=== PATIENT | male | born 1970 | race Caucasian/White ===

== ENCOUNTER 2022-11-05 03:13 | Emergency (ER) | payer BC, SELFPAY ==
[2022-11-05] VITALS (13 sets, daily range): BP systolic 136–173; BP diastolic 92–111; PULSE 74–84; RESP 16–18; TEMP 36.1; O2SAT 94–98
--- NOTE | 2022-11-05 03:41 | CRLHL7_ITS ---
For Patients: As a result of the Century Cures Act, medical imaging exams and procedure reports are released immediately into your electronic medical record. You may view this report before your referring provider. If you have questions, please contact your health care provider. INDICATION: Chest pain COMPARISON: A chest radiograph from October 23, 2016 and a contemporaneously chest CT TECHNIQUE: PA and lateral views of the chest were acquired FINDINGS: TUBES AND LINES: None. HEART AND MEDIASTINUM: The heart size is normal. The mediastinal contour appears normal for patient age. LUNGS AND PLEURAL SPACES: The lungs appear normal.The pleural spaces are unremarkable.The lung apices are excluded from the chest x-ray in the PA view. However, they are seen on the contemporaneously chest CT and appeared normal. OSSEOUS STRUCTURES: Age-appropriate appearance. No acute focal finding. IMPRESSION: No evidence of active pulmonary disease. Dictated by Kian Poe MD @ 11/05/2022 5:00:44 AM (Electronically Signed)
[2022-11-05 03:44] LABS: Troponin, Point-of-Care* 0.01 ng/ml (0.01-0.04)
[2022-11-05 03:47] LABS: Basophils Absolute Auto 0.02 K/uL (0.00-0.30); Basophils Percent Auto 0.2 % (0.0-3.0); Eosinophils Percent Auto 2.4 % (0.0-7.0); Hematocrit 45.9 % (37.0-53.0); Hemoglobin* 16.1 gm/dL (13.5-17.5); Immature Granulocytes Abs Auto 0.01 K/uL (0.00-0.30); Immature Granulocytes Pct Auto 0.1 %; Lymphocytes Absolute Auto 2.55 K/uL (0.90-2.90); Lymphocytes Percent Auto 30.2 % (20-44); Mean Corpuscular HGB Conc 35 gm/dL (32-36); Mean Corpuscular Hemoglobin 31 pg (26-34); Mean Corpuscular Volume 90 fL (80-100); Monocytes Percent Auto 7.5 % (0.0-11.0); Neutrophils Absolute Auto 5.02 K/uL (1.7-7.0); Neutrophils Percent Auto 59.6 % (42.0-72.0); Platelet Count* 195 K/uL (140-440); RDW Coefficient of Variation % 12.4 % (11.5-15.5); Red Blood Count 5.12 m/uL (4.30-5.90); White Blood Count* 8.43 K/uL (4.50-11.00)
--- NOTE | 2022-11-05 03:48 | ED.GENADULT ---
HPI - General Adult General Chief complaint: Chest Pain Stated complaint: chest pain Time Seen by Provider: 11/05/22 03:14 Source: patient and family Mode of arrival: ambulatory History of Present Illness HPI narrative: 49-year-old male presents to the ED with his with chest pain for 3 hours prior to arrival. Pain is located in the lower substernal region, superior to the epigastric region in the anterior chest, radiates up into the mid anterior chest that is accompanied by tenderness when taking deep breath but no dyspnea. No nausea, no vomiting, no fever. Worse with laying flat and on his side. Tried taking Tums with no improvement. Achy and constant, worse with deep breath and certain positions. Nonexertional. No prior history of cardiac disease in himself. Remote family history in a grandfather in his 50s. No history of DVT or PE. He is a nonsmoker. Denies significant alcohol intake. On specific questioning, he does report recent URI symptoms and sore throat. Has tried Flonase nasal spray with no significant improvement in those symptoms. No fever, no pertinent travel. Past medical history benign per his report. reports that he has had vasovagal syncope before. Surgical history notable that he has donated a kidney. Nonsmoker, no significant alcohol intake. No home medications, no allergies. ROS is notable for the generalized, HEENT, cardiac symptoms as above, otherwise denies times 12 systems. Related Data Home Medications Medication Instructions Recorded Confirmed fluticasone propionate 50 1 spray intranasal DAILY PRN 11/05/22 11/05/22 mcg/actuation nasal spray,suspension (24 Hour Allergy Relief) Allergies Allergy/AdvReac Type Severity Reaction Status Date / Time NSAIDS (Non-Steroidal Allergy Unknown Verified 11/05/22 04:49 Anti-Inflamma [facility] Medical History Conjunctivitis of right eye ?H10.9 - Unspecified conjunctivitis (ICD-10) Cough ?R05.9 - Cough, unspecified (ICD-10) History of Mohs micrographic surgery for skin cancer ?Z85.828 - Personal history of other malignant neoplasm of skin (ICD-10) ?Z98.890 - Other specified postprocedural states (ICD-10) Periorbital cellulitis of right eye ?L03.213 - Periorbital cellulitis (ICD-10) Surgical History History of kidney donation ?Z90.5 - Acquired absence of kidney (ICD-10) History of vasectomy ?Z98.52 - Vasectomy status (ICD-10) Family History Maternal Grandmother Breast cancer Family/Other Coronary artery disease Social History Narrative: Has 2 children Non-smoker Smoking Status: Never smoker Do you use any of these nicotine containing products: None Second hand tobacco smoke exposure: No How often do you have a drink containing alcohol: 2-3 times a week How many standard drinks containing alcohol do you have on a typical day: 1 or 2 How often do you have six or more drinks on one occasion: Never AUDIT-C Alcohol total score: 3 Non-prescribed substance use: denies use Exam Const: Vital Signs, click to edit/add: Vital Signs - 24 hr 11/05/22 03:20 11/05/22 03:40 11/05/22 03:32 Temperature 97.0 F L Pulse Rate 75 Pulse Rate [Right Pulse Oximeter] 84 82 Respiratory Rate 16 18 Blood Pressure 153/104 H Blood Pressure [Le ft Upper Arm] 173/111 H 153/104 H Pulse Oximetry 98 98 95 Oxygen Delivery Me thod Room Air Room Air 11/05/22 03:33 11/05/22 03:46 11/05/22 04:00 Temperature Pulse Rate 76 77 75 Pulse Rate [Right Pulse Oximeter] Respiratory Rate Blood Pressure 143/103 H Blood Pressure [Le ft Upper Arm] Pulse Oximetry 95 94 94 Oxygen Delivery Me thod 11/05/22 04:01 11/05/22 04:02 11/05/22 04:30 Temperature Pulse Rate 74 77 77 Pulse Rate [Right Pulse Oximeter] Respiratory Rate Blood Pressure 136/92 H Blood Pressure [Le ft Upper Arm] Pulse Oximetry 94 96 97 Oxygen Delivery Me thod 11/05/22 04:31 11/05/22 04:32 11/05/22 05:00 Temperature Pulse Rate 77 74 77 Pulse Rate [Right Pulse Oximeter] Respiratory Rate Blood Pressure 142/98 H Blood Pressure [Le ft Upper Arm] Pulse Oximetry 96 95 94 Oxygen Delivery Me thod 11/05/22 05:01 Temperature Pulse Rate 77 Pulse Rate [Right Pulse Oximeter] Respiratory Rate Blood Pressure 143/92 H Blood Pressure [Le ft Upper Arm] Pulse Oximetry 95 Oxygen Delivery Me thod Documenting provider has reviewed patient's vital signs: yes Common normals: no apparent distress General appearance: cooperative, comfortable and well kempt Other: Good historian, appears well-nourished well-hydrated HENMT: Common normals: normocephalic Head and scalp: normocephalic Face and sinus: normal facial exam Other: Few small aphthous ulcers along the lining of the pharyngeal arches, tonsils are normal, uvula normal, tongue normal. Eye: Common normals: conjunctivae normal General eye: normal appearance of both eyes Conjunctiva: conjunctiva(e) normal Neck & C-Spine: Common normals: full ROM and no lymphadenopathy Chest: Common normals: inspection of chest normal and palpation of chest normal (Some tenderness with palpation of the sternum) Resp: Common normals: normal respiratory effort, no use of accessory muscles and clear to auscultation bilaterally Effort & inspection: able to speak in complete sentences Auscultation: clear to auscultation bilaterally Cardio: Common normals: regular rate, regular rhythm, S1 normal heart sound, S2 normal heart sound and no murmurs Rate: regular rate Rhythm: regular rhythm Heart sounds: S1 normal and S2 normal GI: Common normals: Normal to inspection, nondistended, normoactive bowel sounds present, soft to palpation, non-tender and no hepatosplenomegaly Palpation: soft and no hepatosplenomegaly Extremity: Common normals: normal to inspection and no pedal edema Neuro: Common normals: moves all extremities and no focal motor deficits Speech: speech normal Psych: Appearance: well kempt Activity/motor behavior: appropriate eye contact Mood and affect: euthymic mood Insight: insight good Judgement: judgment good Skin: Common normals: no rashes or lesions noted General skin exam: no rashes or lesions noted Course Vital Signs Vital signs: Initial Vital Signs Temperature 97.0 F L 11/05/22 03:20 Temperature Source Temporal Artery Scan 11/05/22 03:20 Pulse Rate 84 11/05/22 03:20 Pulse Rhythm Regular 11/05/22 03:20 Respiratory Rate 16 11/05/22 03:20 Blood Pressure 173/111 H 11/05/22 03:20 Blood Pressure Mean 131 H 11/05/22 03:20 Blood Pressure Position Semi-Fowlers 11/05/22 03:20 Pulse Oximetry 98 11/05/22 03:20 Oxygen Delivery Method Room Air 11/05/22 03:20 Vital Signs Temperature 97.0 F L 11/05/22 03:20 Pulse Rate 84 11/05/22 03:20 Respiratory Rate 16 11/05/22 03:20 Blood Pressure 173/111 H 11/05/22 03:20 Pulse Oximetry 98 11/05/22 03:20 Oxygen Delivery Method Room Air 11/05/22 03:20 Temperature 97.0 F L 11/05/22 03:20 Pulse Rate 77 11/05/22 05:01 Respiratory Rate 18 11/05/22 03:40 Blood Pressure 143/92 H 11/05/22 05:01 Pulse Oximetry 95 11/05/22 05:01 Oxygen Delivery Method Room Air 11/05/22 03:40 Medical Decision Making MDM Narrative Medical decision making narrative: Suspect pleuritic chest pain from recent URI, have seen several similar cases recently. Cannot exclude PE, coronary artery disease, lung pathology, arrhythmia. Patient placed on a groundwater monitoring technician, EKG, troponin, D-dimer and chest x-ray. If these are normal, will try NSAIDs. No response from Tums at home, low suspicion for GI etiology but cannot rule out. Await findings. Update: D-dimer was mildly positive, elected to do CT scan of the chest. This is negative as well. Labs are reassuring. Second troponin is also negative. Patient has had no worsening of symptoms. Discussed findings, suspect viral pleurisy. Typical course of illness discussed, alarm symptoms reviewed as indications to come to ED. Patient verbalizes understanding and agreement has no further questions. Discussed Tylenol as primary pain modality, NSAIDs as needed. Use NSAIDs sparingly due to his history of single kidney. Lab Data Lab results reviewed: Yes I reviewed the patient's lab results Lab results narrative: Reassuring Labs: Lab Results 11/05/22 11/05/22 11/05/22 Range/Units 03:23 03:41 04:53 WBC 8.43 (4.50-11.00) K/uL RBC 5.12 (4.30-5.90) m/uL Hgb 16.1 (13.5-17.5) gm/dL Hct 45.9 (37.0-53.0) % MCV 90 (80-100) fL MCH 31 (26-34) pg MCHC 35 (32-36) gm/dL RDW Coeff of Kraissa 12.4 (11.5-15.5) % Plt Count 195 (140-440) K/uL Neut % (Auto) 59.6 (42.0-72.0) % Lymph % (Auto) 30.2 (20-44) % Frio % (Auto) 7.5 (0.0-11.0) % Eos % (Auto) 2.4 (0.0-7.0) % Baso % (Auto) 0.2 (0.0-3.0) % Neut # (Auto) 5.02 (1.7-7.0) K/uL Lymph # (Auto) 2.55 (0.90-2.90) K/uL Frio # (Auto) 0.60 (0.00-0.90) K/UL Eos # (Auto) 0.20 (0.00-0.50) K/uL Baso # (Auto) 0.02 (0.00-0.30) K/uL D-Dimer Quant (PE/DVT) 0.64 H (0.00-0.50) ug/ml Sodium 138 (135-149) mmol/L Potassium 3.9 (3.6-5.1) mmol/L Chloride 104 (96-114) mmol/L Carbon Dioxide 29 (20-32) mmol/L BUN 20 (7-30) mg/dL Creatinine 1.2 (0.5-1.5) mg/dL Estimated GFR 73 ml/min Glucose 106 (60-115) mg/dL Calcium 9.6 (8.4-10.6) mg/dL Troponin I < 0.01 L (0.01-0.04) ng/mL C-Reactive Protein 0.6 (0.5-1.0) mg/dL POC Troponin I 0.01 0.00 L (0.01-0.04) ng/ml Imaging Data CT scan - chest: Attestation: I have reviewed the pertinent imaging results. My impression: Normal Radiologist's impression: IMPRESSION: 1. There is no finding of pulmonary embolus. 2. Aside from trace basilar atelectasis, the lungs appear normal. No pleural effusion or pneumothorax. 3. Hepatic steatosis. ECG Data Attestation: I personally reviewed and interpreted this ECG as follows: Prior ECG tracings: not available for review Interpretation: Normal sinus rhythm, rate of 81. Normal axis. Good R-wave progression. No ST or T-wave abnormalities. Normal EKG Discharge Plan Discharge Clinical Impression: Pleurisy Patient Disposition: Home w/ Parent or Adult Condition: Improved Instructions: Pleurisy (DC) Additional Instructions: As we discussed, all of the tests on your heart, lungs, blood are all reassuring. I suspect that your symptoms are from a viral inflammatory process called pleurisy. This is common with the coxsackievirus which we are seeing as we typically do this time of year. As we discussed, use Tylenol for pain control. If you can reproduce the pain with deep breath or palpation, it is unlikely to be dangerous. If you start having worsening exertional chest pain, significant shortness of breath, dizziness or high fever, you should be re-evaluated. You may try to use a couple of Aleve 1-2 times daily. Try not to use this for more than 3 days due to risk of kidney injury. Activity Level: Activity as Tolerated Discharge Diet: Regular Prescriptions: No Action fluticasone propionate [24 Hour Allergy Relief] 50 mcg/actuation spray,suspension 1 spray intranasal DAILY PRN Rx Instructions: administer into each nostril Follow Up/Referrals: Albaro Marmolejo MD [Referring] - Stand Alone Forms: [facility] Info Instructions
[2022-11-05 03:50] LABS: Slide Review Reflex No
[2022-11-05 04:00] LABS: Chloride* 104 mmol/L (96-114); Sodium* 138 mmol/L (135-149)
[2022-11-05 04:01] LABS: Potassium* 3.9 mmol/L (3.6-5.1)
[2022-11-05 04:03] LABS: Creatinine* 1.2 mg/dL (0.5-1.5); Estimated Glomerular Filt Rate 73 ml/min
[2022-11-05 04:04] LABS: Blood Urea Nitrogen* 20 mg/dL (7-30); Calcium* 9.6 mg/dL (8.4-10.6); Carbon Dioxide* 29 mmol/L (20-32); Glucose* 106 mg/dL (60-115)
[2022-11-05 04:06] LABS: D Dimer Quantitative* 0.64 ug/ml (0.00-0.50)
[2022-11-05 04:07] LABS: C Reactive Protein* 0.6 mg/dL (0.5-1.0)
[2022-11-05 04:16] LABS: Troponin I* < 0.01 ng/mL (0.01-0.04)
--- NOTE | 2022-11-05 04:29 | CRLHL7_ITS ---
For Patients: As a result of the Century Cures Act, medical imaging exams and procedure reports are released immediately into your electronic medical record. You may view this report before your referring provider. If you have questions, please contact your health care provider. INDICATION: Elevated D-dimer with chest pain. COMPARISON: No prior transaxial studies. TECHNIQUE: : CT examination of the chest was performed with the uneventful intravenous administration of 95 cc of Isovue 370 while thin axial sections were obtained from above the apices of the lungs to the lung bases. Please note that all CT scans at this facility use dose modulation, iterative reconstruction, and/or weight-based dosing when appropriate to reduce radiation dose to as low as reasonably achievable. FINDINGS: : HEART and MEDIASTINUM: The heart size is normal. There is no mediastinal or hilar adenopathy or mass. There is no pericardial effusion.Small hiatal hernia PULMONARY ARTERIAL CIRCULATION: There is no visible intraluminal filling defect to suggest pulmonary embolus. LUNGS: The lungs show no focal consolidation or mass. The airways appear normal. Trace basilar atelectasis PLEURAL SPACES: There is no pleural effusion, pneumothorax or pleural based mass. VISUALIZED UPPER ABDOMEN: Hepatic steatosis. Otherwise, the limited visualized upper abdominal structures appear normal. OSSEOUS STRUCTURES: Age-appropriate appearance. No acute fracture or destructive process. TUBES and LINES: None. IMPRESSION: 1. There is no finding of pulmonary embolus. 2. Aside from trace basilar atelectasis, the lungs appear normal. No pleural effusion or pneumothorax. 3. Hepatic steatosis. Please note that all CT scans at this facility use dose modulation, iterative reconstruction, and/or weight-based dosing when appropriate to reduce radiation dose to as low as reasonably achievable. Dictated by Kian Poe MD @ 11/05/2022 4:59:47 AM (Electronically Signed)
== END 2022-11-05 05:25 | disposition home or self-care (01) ==
PROVIDERS: Emergency Provider Family Medicine; PCP Family Medicine
DX: R09.1 Pleurisy (principal)
CPT/HCPCS: 36415; 71046; 71260; 80048; 84484; 85025; 85379; 86140; 93005; 99283; 99284; 99285; Q9967

== ENCOUNTER 2023-02-12 11:32 | Outpatient (CLI) | payer BC, SELFPAY | END 2023-02-12 11:33 | disposition home or self-care (01) | PROVIDERS: PCP Family Medicine; Visit Provider Family Medicine | DX: Z00.00 Encounter for general adult medical examination without abnormal findings (principal); R10.13 Epigastric pain; J18.9 Pneumonia, unspecified organism | CPT/HCPCS: 80053; 83690 ==

== ENCOUNTER 2023-06-02 19:26 | Outpatient (CLI) | payer BC, SELFPAY ==
--- NOTE | 2023-06-09 08:52 | W.PM.SLEEP ---
Sleep Study Details Details Interpreting Provider: Anselmo Date of Sleep Study: 06/02/23 Sleep Study Details: STUDY TYPE:? Home unattended ? BMI:? 28.5 ORDERING PROVIDER:Shakira Briones INDICATION:? Concerns about sleep apnea ? SLEEP SUMMARY:? 468 minutes monitored RESPIRATORY SUMMARY:? AHI 13.7, supine 61.9, left lateral 9.2, right lateral 7.5 Low oxygen 88 0.2% of study oxygen less than 90% Snoring 6.2% PERIODIC LIMB MOVEMENTS OF SLEEP:? Not recorded during home study CARDIAC:? Range 46-99 beats per minute, mean 62.8 beats per minute IMPRESSION:? Mild obstructive sleep apnea with significant supine position dependency RECOMMENDATION: Treatment options include CPAP AutoSet 4-17, dental appliance and/or airway expansion surgery. Would favor CPAP given severity of apnea in the supine position.
--- NOTE | 2023-06-16 10:04 | W.PM.SLEEP ---
Sleep Study Details Details Interpreting Provider: Anselmo Date of Sleep Study: 06/02/23 Sleep Study Details: STUDY TYPE:? Home unattended ? BMI:? 28.5 ORDERING PROVIDER:Shakira Briones INDICATION:? Concerns about sleep apnea ? SLEEP SUMMARY:? 468 minutes monitored RESPIRATORY SUMMARY:? AHI 13.7, supine 61.9, left lateral 9.2, right lateral 7.5 Low oxygen 88 0.2% of study oxygen less than 90% Snoring 6.2% PERIODIC LIMB MOVEMENTS OF SLEEP:? Not CARDIAC:? Recorded during home study range 46-99 beats per minute, mean 62.8 beats per minute IMPRESSION:? Mild obstructive sleep apnea with severe apnea in the supine position. RECOMMENDATION: Treatment options include AutoSet CPAP, dental appliance with avoidance of supine sleep, and/or airway expansion surgery.
== END 2023-06-02 19:27 | disposition home or self-care (01) ==
LOC: SLEEP 19:27
PROVIDERS: PCP Family Medicine; Visit Provider Otolaryngology
DX: G47.33 Obstructive sleep apnea (adult) (pediatric) (principal)
CPT/HCPCS: 95806

== ENCOUNTER 2023-07-27 08:51 | Emergency (ER) | payer BC, SELFPAY ==
[2023-07-27 08:57] VITALS: BP 147/98; PULSE 117; RESP 14; TEMP 35.9; O2SAT 97; BMI 29.6
--- NOTE | 2023-07-27 09:07 | ED_ITS ---
HPI - General Adult General Chief complaint: Allergic Reaction Stated complaint: possible broken nose Time Seen by Provider: 07/27/23 09:03 History of Present Illness HPI narrative: Pt here for eval after nose injury last noc. Pt was hit by dog last noc, denies LOC and blood thinners. Reports pain and swelling. Tried to go to walk-up clinic in [place] and rec to present to ED for r/o of facial bones fx . Also reports confusion this AM on waking. 52-year-old man presenting to the emergency department with concern of potentially broken nose. Has a good size dog. While playing with a dog last night dogs head had came up into his nose. He is having some pain and swelling. Concern was expressed in clinic follow-up for potential fracture. Also alarming was this morning when he woke up he felt confused. This has mostly faded. No complaint of neck or back pain. No vomiting. No discoordination. No visual difficulties. Related Data Home Medications Medication Instructions Recorded Confirmed fluticasone propionate 50 1 spray intranasal DAILY PRN 11/05/22 07/27/23 mcg/actuation nasal spray,suspension (24 Hour Allergy Relief) omeprazole 20 mg capsule,delayed 20 mg PO DAILY 07/27/23 07/27/23 release Allergies Allergy/AdvReac Type Severity Reaction Status Date / Time NSAIDS (Non-Steroidal AdvReac Unknown Verified 07/27/23 07:45 Anti-Inflamma Review of Systems Status of ROS: Reports: 6 or more systems reviewed and unremarkable except as noted in History and below [facility] Medical History Head injury ?S09.90XA - Unspecified injury of head, initial encounter (ICD-10) Wheezing ?R06.2 - Wheezing (ICD-10) Community acquired pneumonia ?J18.9 - Pneumonia, unspecified organism (ICD-10) Periorbital cellulitis of right eye ?L03.213 - Periorbital cellulitis (ICD-10) History of Mohs micrographic surgery for skin cancer ?Z85.828 - Personal history of other malignant neoplasm of skin (ICD-10) ?Z98.890 - Other specified postprocedural states (ICD-10) Cough ?R05.9 - Cough, unspecified (ICD-10) Conjunctivitis of right eye ?H10.9 - Unspecified conjunctivitis (ICD-10) Surgical History History of vasectomy ?Z98.52 - Vasectomy status (ICD-10) History of kidney donation ?Z90.5 - Acquired absence of kidney (ICD-10) Family History Maternal Grandmother Breast cancer Family/Other Coronary artery disease Social History Narrative: Has 2 children Non-smoker Smoking Status: Never smoker Do you use any of these nicotine containing products: None Second hand tobacco smoke exposure: No How often do you have a drink containing alcohol: 2-3 times a week How many standard drinks containing alcohol do you have on a typical day: 1 or 2 How often do you have six or more drinks on one occasion: Never AUDIT-C Alcohol total score: 3 Non-prescribed substance use: denies use Exam Narrative: Exam Narrative: Pleasant. Seems a little distracted, uncomfortable. Sounds a little congested the nasopharynx. Evidently does have allergic rhinitis. Skin is warm and dry. Mild swelling and mild erythema over the bridge of his nose. No depression. No septal hematoma on intranasal exam. Slightly narrower in the right naris. Head otherwise atraumatic. Neck is supple nontender. Cranial nerves 2-12 intact. Extraocular movements are full and without nystagmus. Pupils are equal and appropriately reactive. Observed to be ambulating, transitioning without diffic ulty. Const: Vital Signs, click to edit/add: Vital Signs - 24 hr 07/27/23 08:57 Temperature 96.7 F L Pulse Rate [Pulse Oximeter] 117 H Respiratory Rate 14 Blood Pressure [Ri ght Upper Arm] 147/98 H Pulse Oximetry 97 Oxygen Delivery Me thod Room Air Documenting provider has reviewed patient's vital signs: yes Course Vital Signs Vital signs: Initial Vital Signs Temperature 96.7 F L 07/27/23 08:57 Temperature Source Temporal Artery Scan 07/27/23 08:57 Pulse Rate 117 H 07/27/23 08:57 Pulse Rhythm Regular 07/27/23 08:57 Respiratory Rate 14 07/27/23 08:57 Blood Pressure 147/98 H 07/27/23 08:57 Blood Pressure Mean 114 H 07/27/23 08:57 Blood Pressure Position Sitting 07/27/23 08:57 Pulse Oximetry 97 07/27/23 08:57 Oxygen Delivery Method Room Air 07/27/23 08:57 Vital Signs Temperature 96.7 F L 07/27/23 08:57 Pulse Rate 117 H 07/27/23 08:57 Respiratory Rate 14 07/27/23 08:57 Blood Pressure 147/98 H 07/27/23 08:57 Pulse Oximetry 97 07/27/23 08:57 Oxygen Delivery Method Room Air 07/27/23 08:57 Temperature 96.7 F L 07/27/23 10:56 Pulse Rate 91 07/27/23 10:56 Respiratory Rate 14 07/27/23 10:56 Blood Pressure 147/98 H 07/27/23 10:56 Pulse Oximetry 97 07/27/23 08:57 Oxygen Delivery Method Room Air 07/27/23 08:57 Medical Decision Making MDM Narrative Medical decision making narrative: I think it is possible that there is a fracture here. If so it is not depressed. I also do not appreciate other significant cosmetic deformity or impingement on airway. I would anticipate that this will look fairly normal once swelling goes down. I do not think that imaging will change any recommendations. It is possible there is some degree of concussion here. If this information is helpful I did offer imaging of the nasal bones. They decided they would like this done and so this was ordered. He did not feel he needed anything for pain. Review of x-ray of facial bones by me - I can not appreciate a fracture here. However radiology on over-read as below TECHNIQUE: Three views nasal bones. FINDINGS: BONES: Nondepressed and nondisplaced left nasal bone fracture involving the tip of the nasal bone. Normal mineralization. No focal bone lesion. Soft Tissues: Normal. No foreign body. IMPRESSION : Nondepressed nondisplaced left nasal bone fracture. Had anticipated discharging a prior to radiology over-read since I did not note anything major. However just prior to departure over-read returned as above. I printed pictures and discussed findings with Mr. Huffman and spouse. See patient discharge plan Discharge Plan Discharge Clinical Impression: Headache, Nasal contusion, Closed head injury Patient Disposition: Home w/ Parent or Adult Condition: Stable Additional Instructions: Return for severe headache, repeated vomiting, new and focal weakness, visual changes, discoordination, unusual somnolence. Important to get quality and regular sleep and stay well hydrated. You might experience other symptoms like headache and nausea on exertion which would also be an indication to back off that level of activity and reassess in 1 week.? Other symptoms might be a smoldering headache or nausea for an extended period of time, mood lability, sleep disturbances, difficulty with concentration, persistent light sensitivity.? If these symptoms continue beyond a week, I would be re-evaluated for consideration of participation with physical therapy specializing in concussive symptoms or follow-up with a clinic specializing in concussion. I will let you know if Radiology says anything more about your imaging. Might want to ice your face a couple of times today and maybe tomorrow. Acetaminophen as discussed. Prescriptions: No Action fluticasone propionate [24 Hour Allergy Relief] 50 mcg/actuation spray,suspension 1 spray intranasal DAILY PRN Rx Instructions: administer into each nostril omeprazole 20 mg capsule,delayed release(DR/EC) 20 mg PO DAILY Follow Up/Referrals: Chantell Gonzalez MD [Primary Care Provider] - Stand Alone Forms: [facility] Info Instructions
--- NOTE | 2023-07-27 09:26 | CRLHL7_ITS ---
For Patients: As a result of the Cures Act, medical imaging exams and procedure reports are released immediately into your electronic medical record. You may view this report before your referring provider. If you have questions, please contact your health care provider. INDICATION: Blow to nose, pain COMPARISON: None. TECHNIQUE: Three views nasal bones. FINDINGS: BONES: Nondepressed and nondisplaced left nasal bone fracture involving the tip of the nasal bone. Normal mineralization. No focal bone lesion. Soft Tissues: Normal. No foreign body. IMPRESSION : Nondepressed nondisplaced left nasal bone fracture. Dictated by Andie Zuniga MD @ 07/27/2023 10:38:28 AM (Electronically Signed)
[2023-07-27 10:56] VITALS: BP 147/98; PULSE 91; RESP 14; TEMP 35.9
== END 2023-07-27 10:55 | disposition home or self-care (01) ==
PROVIDERS: Emergency Provider Family Medicine; PCP Family Medicine
DX: S00.33XA Contusion of nose, initial encounter (principal); W54.1XXA Struck by dog, initial encounter; R51.9 Headache, unspecified
CPT/HCPCS: 70160; 99283; 99284

== ENCOUNTER 2023-12-07 08:02 | Outpatient (CLI) | payer BC, SELFPAY | END 2023-12-07 08:03 | disposition home or self-care (01) | PROVIDERS: Visit Provider Family Medicine | DX: Z00.00 Encounter for general adult medical examination without abnormal findings (principal); K76.0 Fatty (change of) liver, not elsewhere classified; R79.89 Other specified abnormal findings of blood chemistry; R03.0 Elevated blood-pressure reading, without diagnosis of hypertension; M25.551 Pain in right hip; M25.552 Pain in left hip; Z12.5 Encounter for screening for malignant neoplasm of prostate; Z82.69 Family history of other diseases of the musculoskeletal system and connective tissue | CPT/HCPCS: 80053; 80061; 82043; 82570; 86039; 86140; 86803; G0103 ==

== ENCOUNTER 2025-03-14 13:45 | Outpatient (CLI) | payer BC, SELFPAY | END 2025-03-14 13:46 | disposition home or self-care (01) | LOC: FRMREF 13:47 | PROVIDERS: PCP Family Medicine; Visit Provider Family Medicine | DX: Z01.818 Encounter for other preprocedural examination (principal) | CPT/HCPCS: 80053; 80061 ==

== ENCOUNTER 2025-04-21 22:58 | Emergency (ER) | payer BC, SELFPAY ==
--- OUTSIDE RECORDS SUMMARY | 2025-04-10 13:08 | XMS_ITS | Encounter Summary ---
Author Organization [facility] Address [address] [place] [id number] Care Team Providers Care Jordan Worker Name Role Phone Clinic, [facility] Primary Care Provider Reason for Visit * Reason Comments Dizziness Encounter Details Date Type Department Care Team (Late st Contact Info) Description 04/10/2025 1:08 PM CDT - 04/10/2025 3:56 PM CDT Emergency [facility] Emergency Dept [address] [place] [id number] Arturo Mcduffie MD [facility] [address] [place] [address] [place] [id number] Syncope, unspecified syncope type (Primary Dx); Speech disturbance, unspecified type Discharge Disposition: Home or Self Care Social History Tobacco Use Types Packs/Day Years Used Date Smoking Tobacco: Never Assessed Sex and Gender Information Value Date Recorded Sex Assigned at Not on file Legal Sex Male 2:13 PM CDT Gender Identity Not on file Sexual Orientation Not on file documented as of this encounter Last Filed Vital Signs Vital Sign Reading Time Taken Comments Blood Pressure 156/98 04/10/2025 3:31 PM CDT Pulse 98 04/10/2025 3:31 PM CDT Temperature 36.7 C (98.1 F) 04/10/2025 1:39 PM CDT Respiratory Rate 18 04/10/2025 1:16 PM CDT Oxygen Saturation 96% 04/10/2025 3:31 PM CDT Inhaled Oxygen Concentration - - Weight 101 kg (222 lb 10.6 oz) 04/10/2025 1:16 P M CDT Height - - Body Mass Index - - documented in this encounter Discharge Instructions * Discharge Instructions* Arturo Mcduffie MD - 04/10/2025 3:27 PM CDT Discharge Instructions Syncope Syncope (fainting) is a sudden, short loss of consciousness (passing out spell). People will usually fall to the ground when they faint or slump over if seated. People may also shake when this happens, and it can sometimes be difficult to tell the difference between syncope and a seizure. At this time, your provider does not find a reason to suspect that your fainting spell is a sign of anything dangerous or life-threatening. However, sometimes the signs of serious illness do not show up right away. Generally, every Emergency Department visit should have a follow-up clinic visit with either a primary or a specialty clinic/provider. Please follow-up as instructed by your emergency provider today. Return to the Emergency Department if: You faint again. You have any significant bleeding. You have chest pain or a fast or irregular heartbeat. You feel short of breath. You cough up any blood. You have abdominal (belly) pain or unusual back pain. You have ongoing vomiting (throwing up) or diarrhea (loose stools). You have a black or tarry bowel movement, or blood in the stool or in your vomit. You have a fever over 101??F. You lose feeling or cannot move a part of your body or cannot talk normally. You are confused, have a headache, cannot see well, or have a seizure. DO NOT DRIVE. CALL 911 INSTEAD! What can I do to help myself? Follow any specific instructions that your provider discussed with you. If you feel light-headed, make sure to sit down right away, even if you have to sit on the floor. Follow up with your regular medical provider as discussed for further management. This may include lowering your blood pressure medications, insulin or other diabetic medications, checking your bloodsugar more frequently, and drinking more fluids, taking medicines for vomiting or diarrhea or getting up slower. If you were given a prescription for medicine here today, be sure to read all of the information (including the package insert) that comes with your prescription. This will include important information about the medicine, its side effects, and any warnings that you need to know about. The pharmacist who fills the prescription can provide more information and answer questions you may have about the medicine. If you have questions or concerns that the pharmacist cannot address, please call or return to the Emergency Department. Remember that you can always come back to the Emergency Department if you are not able to see your regular provider in the amount of time listed above, if you get any new symptoms, or if there is anything that worries you. documented in this encounter Consult Notes * Micheline Griffith, GRACIELA CHANGE MANAGEMENT FACILITATOR - 04/10/2025 3:01 PM CDTAssociated Order(s): NEUROLOGY IP STROKE CONSULT [facility] Stroke Telephone Note I was called by Arturo Mcduffie on 04/10/25 regarding patient Kash Huffman. The patient is a 54 year old male with PMH of prior syncope recent ALS surgery who presents for evaluation of syncope. LKW around 1030 and he was in the shower and upon getting out felt dizzy/lightheaded and he sat down andthen lost consciousness. When he awoke he had bilateral blurred vision some slowed/slurred speech, dizziness and nausea. Of note patient has a prior history of syncope reportedly due to vasovagal response. Per ED provider symptoms have not resolved and patient has no deficits on examination. Vitals BP: 122/88 Pulse: 90 Resp: 18 Temp: 98.1 ??F (36.7 ??C) Weight: 101 kg (222 lb 10.6 oz) Imaging Findings CT head: no hemorrhage or other acute findings CTA head/neck: No LVO, significant stenosis or dissection; in particular no basilar or posterior circulation pathology Impression Syncopal event followed by bilateral blurred vision, slowed/slurred speech, dizziness and nausea. Etiology unclear. However, syncopal event is not a common presentation for TIA/stroke and in particular with lack of focal deficits this seems very unlikely. Symptoms are more suggestive of a global hypoperfusion such as can be related to hypotension, cardiac cause, vasovagal response versus other Recommendations -Further TIA/stroke workup recommended at this time Case discussed with vascular neurology attending Dr. Tripathi. My recommendations are based on the information provided over the phone by Kash Huffman's in-personproviders. They are not intended to replace the clinical judgment of his in-person providers. I wasnot requested to personally see or examine the patient at this time. Micheline Griffith APRN CNP Vascular Neurology To page me or covering stroke neurology steam clothes press operator, click here: [employer] Choose Wood Tool Maker tab at top, then select NEUROLOGY/ALL SITES from middle drop- down box, press Enter, then look for stroke or telestroke for your site. Billing Statement My total time spent in verbal discussion with requesting provider, reviewing clinical information and formulating assessment was 25 minutes. Cosigned by Madi Ng MD at 04/10/2025 3:31 PM CDT Associated attestation - Madi Ng MD - 04/10/2025 3:31 PM CDT Stroke/Telestroke Attending Attestation I have reviewed and discussed with the advanced practice provider/fellow/resident their history, physical and plan for Kash Huffman. I did not participate in a shared visit by interviewing or examining the patient. Please contact the stroke service with any questions: link to Text page Madi Dadren MD Date of Service (when I saw the patient): I did not personally see this patient today. documented in this encounter ED Notes * Ela Simms RN - 04/10/2025 3:46 PM CDT Patient refusing road test, says he feels fine ambulating at home. made aware * Arturo Mcduffie MD - 04/10/2025 1:28 PM CDT Emergency Department Note History of Present Illness Chief Complaint Dizziness HPI Kash Huffman is a 54 year old male who presents to the ER after syncopal episode. Since his right ACL surgery 5 to 6 days ago, he has had some lingering nausea and lightheadedness. This morning he felt similar but had some tightness about the right knee. After getting of the shower, patient startedto feel more lightheaded and sat on the toilet. His witnessed him to have a syncopal episode lasting a minute or so. No seizure-like activity. Patient denies chest pain but has had some faster heart rates and exertional dyspnea since the surgery. He also thinks he might have some word finding difficulties at present. No numbness or weakness in the extremities. No headache. No vision changes. Independent Historian None Review of External Notes Past Medical History Medical History and Problem List No past medical history on file. Medications No current outpatient medications on file. Surgical History No past surgical history on file. Physical Exam Patient Vitals for the past 24 hrs: BP Temp Temp src Pulse Resp SpO2 Weight 04/10/25 1531 (!) 156/98 -- -- 98 -- 96 % -- 04/10/25 1428 122/88 -- -- 90 -- 95 % -- 04/10/25 1339 -- 98.1 ??F (36.7 ??C) Oral -- -- -- -- 04/10/25 1338 (!) 145/98 -- -- 89 -- 94 % -- 04/10/25 1316 (!) 141/97 -- -- 84 18 100 % 101 kg (222 lb 10.6 oz) Physical Exam VS: Reviewed per above HENT: Mucous membranes moist, no nuchal rigidity EYES: sclera anicteric CV: Rate as noted, regular rhythm. RESP: Effort normal. Breath sounds are normal bilaterally. GI: no tenderness/rebound/guarding, not distended. NEURO: GCS 15, cranial nerves II through XII are intact, 5 out of 5 strength in all 4 extremities, sensation is intact light touch in all 4 extremities. Normal FNF testing BL, heel nava testing limited due to RLE knee immobilizer. MSK: No deformity of the extremities, R anterior knee surgical site c/d/I without surrounding erythema. Scant edema about R knee and RLE. SKIN: Warm and dry Diagnostics Lab Results Labs Ordered and Resulted from Time of ED Arrival to Time of ED Departure BASIC METABOLIC PANEL (LIMITED OCCURRENCES) - Abnormal Result Value Sodium 135 Potassium 4.8 Chloride 99 Carbon Dioxide (CO2) 24 Anion Gap 12 Urea Nitrogen 22.4 (*) Creatinine 1.40 (*) GFR Estimate 59 (*) Calcium 9.7 Glucose 145 (*) D DIMER QUANTITATIVE - Abnormal D-Dimer Quantitative 2.20 (*) TROPONIN T, HIGH SENSITIVITY - Normal Troponin T, High Sensitivity 7 MAGNESIUM (LIMITED OCCURRENCES) - Normal Magnesium 1.9 CBC WITH PLATELETS AND DIFFERENTIAL WBC Count 8.88 RBC Count 5.39 Hemoglobin 16.5 Hematocrit 46.7 MCV 86.6 MCH 30.6 MCHC 35.3 RDW 12.5 Platelet Count 178 % Neutrophils 70.8 % Lymphocytes 15.9 % Monocytes 10.6 % Eosinophils 2.0 % Basophils 0.2 % Immature Granulocytes 0.5 NRBCs per 100 WBC 0.0 Absolute Neutrophils 6.29 Absolute Lymphocytes 1.41 Absolute Monocytes 0.94 Absolute Eosinophils 0.18 Absolute Basophils <0.03 Absolute Immature Granulocytes 0.04 Absolute NRBCs <0.03 TROPONIN T, HIGH SENSITIVITY Imaging CTA Head Neck with Contrast Final Result IMPRESSION: HEAD CTA: 1. No large vessel occlusion, dissection, hemodynamic stenosis or aneurysm. Satisfactory branch arborization pattern and caliber bilateral SAHARA, MCA and DIE CUTTING MACHINE OPERATOR distribution. No pathologic enhancement intracranially. Dural venous sinus enhancement is normal. NECK CTA: 1. No hemodynamic stenosis or dissection of the major neck arteries or at the great vessel origin level. No pathologic enhancement in the neck. CT Chest Pulmonary Embolism w Contrast Final Result IMPRESSION: 1. Negative CT pulmonary angiogram. No evidence of pulmonary embolus. No acute findings in the chest. Head CT w/o contrast Final Result IMPRESSION: 1. No acute intracranial process. EKG ECG results from 04/10/25 EKG 12 lead Value Systolic Blood Pressure Diastolic Blood Pressure Ventricular Rate [address] Interval 150 QRS Duration 88 QT 366 QTc 432 P Cic[place] 61 R AXIS 91 T [place] 58 Interpretation ECG Sinus rhythm Rightward axis Borderline ECG No previous ECGs available Independent Interpretation None ED Course Medications Administered Medications sodium chloride 0.9 % bag for CT scan flush (100 mLs As instructed $Given 04/10/25 7915) sodium chloride 0.9% BOLUS 1,000 mL (0 mLs Intravenous Stopped 9/22/25 1546) midazolam (VERSED) injection 0.5 mg (0.5 mg Intravenous $Given 04/10/25 1334) iohexol (OMNIPAQUE) 350 MG/ML injectable solution 500 mL (71 mLs Intravenous $Given 04/10/25 1409) Procedures Procedures Discussion of Management ED Course as of 04/10/25 1650 Mon Apr 10, 2025 1500 I rechecked pt. Speech subjectively back to baseline. He feels that episode lasted 1 hour. 1504 I spoke with stroke team flavio- low risk for TIA given hx. Sounds like global hypoperfusion in setting of syncope [address] test- he understands it is to confirm he is at his neurologic baseline. Additional Documentation None Medical Decision Making / Diagnosis [facility] Diagnoses: None MIPS None CT for PE was ordered because the patient had an abnormal d-dimer. LOGAN Huffman is a 54 year old male who presents to the ER for evaluation of syncopal episode and 1 hour episode of word finding difficulties versus slurred speech. On arrival vital signs are reassuring. He is neurologically intact on my examination without objective speech deficit. Initial CT head,CTA head and neck are unremarkable. CT PE study was obtained due to elevated D-dimer and question of exertional dyspnea/tachycardia. This study was negative as well. Basic labs are reassuring. No signs of concerning anemia or electrolyte derangement or ACS. After IV fluids and some Versed, he felt much improved. I spoke with stroke team and their suspicion for occult TIA was quite low- no furtherTIA/stroke workup recommended at this time. I agree with this sentiment. Offered hospital admissionfor further telemetry monitoring and echocardiogram in the setting of syncope but patient declined.Patient reports previous evaluations for syncopal episodes. Recommended prompt primary care follow-up and return should symptoms progress or worsen. All questions answered prior to discharge. Disposition The patient was discharged. Diagnosis ICD-10-CM 1. Syncope, unspecified syncope type R55 2. Speech disturbance, unspecified type R47.9 Discharge Medications There are no discharge medications for this patient. Arturo Mcduffie MD 04/10/25 1652 * Cherie Darnell RN - 04/10/2025 1:08 PM CDT Pt arrives to the ED via EMS from home. Pt had ACL surgery on Thu. Pt has h/o spontaneous vagal episodes. Today had shower around 1030, had episode after getting out of shower where he felt dizzy/lightheaded. Was able to get sit down. Usually with his vagal episodes the symptoms resolve within 10-15 min but this time they have lasted longer. Pt states dizziness, nausea, difficulty focusing difficulty communicating, bilateral blurry vision. No headache. Not on thinners. BG 114, 4 mg zofran givenby EMS. * Sylvia Pagan RN - 04/10/2025 1:08 PM CDT Bed: [id number] Expected date: 04/10/25 Expected time: 12:50 PM Means of arrival: Comments: [id number] documented in this encounter Plan of Treatment Not on file documented as of this encounter Procedures Procedure Name Priority Date/Time Associated Diagnosis Comments CTA HEAD NECK W CONTRAST STAT 04/10/2025 2:[address] CHEST PULMONARY EMBOLISM W CONTRAST STAT 04/10/2025 2:[address] HEAD W/O CONTRAST STAT 04/10/2025 2:19 PM CDT EXTRA TUBE STAT 04/10/2025 1:18 PM CDT EXTRA PURPLE TOP TUBE STAT 04/10/2025 1:18 PM CDT EXTRA GREEN TOP (LITHIUM HEPARIN) TUBE STAT 04/10/2025 1:18 PM CDT EXTRA RED TOP TUBE STAT 04/10/2025 1: 18 PM CDT EXTRA BLUE TOP TUBE STAT 04/10/2025 1 :18 PM CDT CBC WITH PLATELETS AND DIFFERENTIAL STAT 04/10/2025 1:18 PM CDT CBC WITH PLATELETS AND DIFFERENTIAL (LIMITED OCCURRENCES) STAT 04/10/2025 1:18 PM CDT BASIC METABOLIC PANEL (LIMITED OCCURRENCES) STAT 04/10/2025 1:18 PM CDT MAGNESIUM (LIMITED OCCURRENCES) STAT 04/10/2025 1:18 PM CDT TROPONIN T, HIGH SENSITIVITY STAT 04/10/2025 1:18 PM CDT D DIMER QUANTITATIVE STAT 04/10/2025 1:18 PM CDT EKG 12-LEAD, TRACING ONLY STAT 04/10/2025 1:15 PM CDT documented in this encounter Results * CTA Head Neck with Contrast (04/10/2025 2:25 PM CDT) Anatomical Region Laterality Modality Head, SUBRAD CT NEURO, SUBRA D CT NEURO, UMP CT NEURO, RAD CT Computed Tomography 04/10/2025 2:25 PM CDT Impressions 04/10/2025 2:41 PM CDT IMPRESSION: HEAD CTA: 1. No large vessel occlusion, dissection, hemodynamic stenosis or aneurysm. Satisfactory branch arborization pattern and caliber bilateral SAHARA, MCA and DIE CUTTING MACHINE OPERATOR distribution. No pathologic enhancement intracranially. Dural venous sinus enhancement is normal. NECK CTA: 1. No hemodynamic stenosis or dissection of the major neck arteries or at the great vessel origin level. No pathologic enhancement in the neck. Narrative 04/10/2025 2:41 PM CDT EXAM: CTA HEAD NECK W CONTRAST LOCATION: [facility] DATE: 04/10/2025 INDICATION: Syncope, recent dizziness. COMPARISON: None. CONTRAST: 71mL Omni 350 TECHNIQUE: Head and neck CT angiogram with IV contrast. Axial helical CT images of the head and neck vessels obtained during the arterial phase of intravenous contrast administration. Axial 2D reconstructed images and multiplanar 3D MIP reconstructed images of the head and neck vessels were performed by the technologist. Dose reduction techniques were used. All stenosis measurements made according to NASCET criteria unless otherwise specified. FINDINGS: HEAD CTA: ANTERIOR CIRCULATION: No stenosis/occlusion, aneurysm, or high flow vascular malformation. Standard [place] anatomy. Satisfactory peripheral branch arborization pattern and caliber bilateral SAHARA and MCA distribution. POSTERIOR CIRCULATION: No stenosis/occlusion, aneurysm, or high flow vascular malformation. Balanced vertebral arteries supply a normal basilar artery. Satisfactory peripheral branch arborization pattern and caliber bilateral DIE CUTTING MACHINE OPERATOR distribution. DURAL VENOUS SINUSES: Expected enhancement of the major dural venous sinuses. NECK CTA: RIGHT CAROTID: No measurable stenosis or dissection. LEFT CAROTID: No measurable stenosis or dissection. VERTEBRAL ARTERIES: No focal stenosis or dissection. Slight congenital dominant caliber left vertebral artery. AORTIC ARCH: Conventional 3 vessel arch anatomy. No evidence for great vessel origin stenosis or dissection. NONVASCULAR STRUCTURES: No pathologic enhancement is noted intracranially or within orbits. No mass or mass effect intracranially. No mass, adenopathy or pathologic enhancement in the neck. Thyroid is satisfactory. Abnormal right paratracheal lymph node presumed reactive. No airway narrowing. Minimal scarring in the upper lungs. Mild degenerative changes in the cervical spine. No severe canal stenosis or severe foraminal narrowing at any cervical level. Procedure Note Artemio Levi MD - 04/10/2025 EXAM: CTA HEAD NECK W CONTRAST LOCATION: [facility] DATE: 04/10/2025 INDICATION: Syncope, recent dizziness. COMPARISON: None. CONTRAST: 71mL Omni 350 TECHNIQUE: Head and neck CT angiogram with IV contrast. Axial helical CTimages of the head and neck vessels obtained during the arterial phase ofintravenous contrast administration. Axial 2D reconstructed images andmultiplanar 3D MIP reconstructed images of the head and neck vessels were performed by the technologist.Dose reduction techniques were used. All stenosis measurements madeaccording to NASCET criteria unless otherwise specified. FINDINGS: HEAD CTA: ANTERIOR CIRCULATION: No stenosis/occlusion, aneurysm, or high flowvascular malformation. Standard [place] anatomy. Satisfactoryperipheral branch arborization pattern and caliber bilateral SAHARA and MCAdistribution. POSTERIOR CIRCULATION: No stenosis/occlusion, aneurysm, or high flowvascular malformation. Balanced vertebral arteries supply a normal basilarartery. Satisfactory peripheral branch arborization pattern and caliberbilateral DIE CUTTING MACHINE OPERATOR distribution. DURAL VENOUS SINUSES: Expected enhancement of the major dural venoussinuses. NECK CTA: RIGHT CAROTID: No measurable stenosis or dissection. LEFT CAROTID: No measurable stenosis or dissection. VERTEBRAL ARTERIES: No focal stenosis or dissection. Slight congenitaldominant caliber left vertebral artery. AORTIC ARCH: Conventional 3 vessel arch anatomy. No evidence for greatvessel origin stenosis or dissection. NONVASCULAR STRUCTURES: No pathologic enhancement is noted intracraniallyor within orbits. No mass or mass effect intracranially. No mass,adenopathy or pathologic enhancement in the neck. Thyroid is satisfactory.Abnormal right paratracheal lymph node presumed reactive. No airway narrowing. Minimal scarring in the upperlungs. Mild degenerative changes in the cervical spine. No severe canalstenosis or severe foraminal narrowing at any cervical level. IMPRESSION: HEAD CTA: 1. No large vessel occlusion, dissection, hemodynamic stenosis oraneurysm. Satisfactory branch arborization pattern and caliber bilateralACA, MCA and DIE CUTTING MACHINE OPERATOR distribution. No pathologic enhancement intracranially.Dural venous sinus enhancement is normal. NECK CTA: 1. No hemodynamic stenosis or dissection of the major neck arteries or atthe great vessel origin level. No pathologic enhancement in the neck. Arturo Mcduffie MD [facility] CT ORDERABLES Final Resul t * CT Chest Pulmonary Embolism w Contrast (04/10/2025 2:20 PM CDT) Anatomical Region Laterality Modality Chest, SUBRAD CT BODY, UMP CT CHEST Computed Tomography 04/10/2025 2:20 PM CDT Impressions 04/10/2025 3:20 PM CDT IMPRESSION: 1. Negative CT pulmonary angiogram. No evidence of pulmonary embolus. No acute findings in the chest. Narrative 04/10/2025 3:20 PM CDT EXAM: CT CHEST PULMONARY EMBOLISM W CONTRAST LOCATION: [facility] DATE: 04/10/2025 INDICATION: SOB, elevated D-dimer. COMPARISON: None. TECHNIQUE: CT chest pulmonary angiogram during arterial phase injection of IV contrast. Multiplanar reformats and MIP reconstructions were performed. Dose reduction techniques were used. CONTRAST: 71mL Omni 350 FINDINGS: ANGIOGRAM CHEST: Pulmonary arteries are normal caliber and negative for pulmonary emboli. Thoracic aorta is negative for dissection. No CT evidence of right heart strain. LUNGS AND PLEURA: Normal. MEDIASTINUM/AXILLAE: Normal. CORONARY ARTERY CALCIFICATION: None. UPPER ABDOMEN: Normal. MUSCULOSKELETAL: Normal. Procedure Note Atremio Abraham MD - 04/10/2025 EXAM: CT CHEST PULMONARY EMBOLISM W CONTRAST LOCATION: [facility] DATE: 04/10/2025 INDICATION: SOB, elevated D-dimer. COMPARISON: None. TECHNIQUE: CT chest pulmonary angiogram during arterial phase injection ofIV contrast. Multiplanar reformats and MIP reconstructions were performed.Dose reduction techniques were used. CONTRAST: 71mL Omni 350 FINDINGS: ANGIOGRAM CHEST: Pulmonary arteries are normal caliber and negative forpulmonary emboli. Thoracic aorta is negative for dissection. No CTevidence of right heart strain. LUNGS AND PLEURA: Normal. MEDIASTINUM/AXILLAE: Normal. CORONARY ARTERY CALCIFICATION: None. UPPER ABDOMEN: Normal. MUSCULOSKELETAL: Normal. IMPRESSION: 1. Negative CT pulmonary angiogram. No evidence of pulmonary embolus. Noacute findings in the chest. us Arturo Mcduffie MD IM CT ORDERABLES Final Resul t * Head CT w/o contrast (04/10/2025 2:19 PM CDT) Anatomical Region Laterality Modality Head, SUBRAD CT NEURO, SUBRA D CT NEURO, UMP CT NEURO, RAD CT Computed Tomography 04/10/2025 2:19 PM CDT Impressions 04/10/2025 2:33 PM CDT IMPRESSION: 1. No acute intracranial process. Narrative 04/10/2025 2:33 PM CDT EXAM: CT HEAD W/O CONTRAST LOCATION: [facility] DATE: 04/10/2025 INDICATION: Syncope, recent dizziness. COMPARISON: None. TECHNIQUE: Routine CT head without intravenous contrast. Multiplanar reformats. Dose reduction techniques were used. FINDINGS: INTRACRANIAL CONTENTS: No intracranial hemorrhage, extra-axial collection, or mass effect. No CT evidence of acute infarct. Normal parenchymal attenuation for age. Corpus callosum is normal. Sella and suprasellar structures are normal. Cerebellar tonsillar position is normal. Normal ventricles and sulcation for age. VISUALIZED ORBITS/SINUSES/MASTOIDS: No intraorbital abnormality. No paranasal sinus mucosal disease. No middle ear or mastoid effusion. BONES/SOFT TISSUES: No scalp hematoma. No skull fracture. Nasopharynx is patent. Procedure Note Artemio Levi MD - 04/10/2025 EXAM: CT HEAD W/O CONTRAST LOCATION: [facility] DATE: 04/10/2025 INDICATION: Syncope, recent dizziness. COMPARISON: None. TECHNIQUE: Routine CT head without intravenous contrast. Multiplanarreformats. Dose reduction techniques were used. FINDINGS: INTRACRANIAL CONTENTS: No intracranial hemorrhage, extra-axial collection,or mass effect. No CT evidence of acute infarct. Normal parenchymalattenuation for age. Corpus callosum is normal. Sella and suprasellarstructures are normal. Cerebellar tonsillar position is normal. Normal ventricles and sulcation for age. VISUALIZED ORBITS/SINUSES/MASTOIDS: No intraorbital abnormality. Noparanasal sinus mucosal disease. No middle ear or mastoid effusion. BONES/SOFT TISSUES: No scalp hematoma. No skull fracture. Nasopharynx ispatent. IMPRESSION: 1. No acute intracranial process. us Arturo Mcduffie MD [facility] CT ORDERABLES Final Resul t * CBC with platelets and differential (04/10/2025 1:18 PM CDT) WBC Count 8.88 4.00 - 11.00 10e3/uL 04/10/2025 1:41 PM CDT [facility] RBC Count 5.39 4.40 - 5.90 10e6/uL 04/10/2025 1:41 PM CDT [facility] Hemoglobin 16.5 13.3 - 17.7 g/dL 04/10/2025 1:41 PM CDT [facility] Hematocrit 46.7 40.0 - 53.0 % 04/10/2025 1:41 PM CDT [facility] MCV 86.6 78.0 - 100.0 fL 04/10/2025 1:41 PM CDT [facility] MCH 30.6 26.5 - 33.0 pg 04/10/2025 1:41 PM CDT [facility] MCHC 35.3 31.5 - 36.5 g/dL 04/10/2025 1:41 PM CDT [facility] RDW 12.5 10.0 - 15.0 % 04/10/2025 1:41 PM CDT [facility] Platelet Count 178 150 - 450 10e3/uL 04/10/2025 1:41 PM CDT [facility] % Neutrophils 70.8 % 04/10/2025 1:41 PM CDT [facility] % Lymphocytes 15.9 % 04/10/2025 1:41 PM CDT [facility] % Monocytes 10.6 % 04/10/2025 1:41 PM CDT [facility] % Eosinophils 2.0 % 04/10/2025 1:41 PM CDT [facility] % Basophils 0.2 % 04/10/2025 1:41 PM CDT [facility] % Immature Granulocytes 0.5 % 04/10/2025 1:41 PM CDT [facility] NRBCs per 100 WBC 0.0 <1.0 /100 025 1:41 PM CDT [facility] Absolute Neutrophils 6.29 1.60 - 8.30 10e3/uL 04/10/2025 1:41 PM CDT [facility] Absolute Lymphocytes 1.41 0.80 - 5.30 10e3/uL 04/10/2025 1:41 PM CDT [facility] Absolute Monocytes 0.94 0.00 - 1.30 10e3/uL 04/10/2025 1:41 PM CDT [facility] Absolute Eosinophils 0.18 0.00 - 0.70 10e3/uL 04/10/2025 1:41 PM CDT [facility] Absolute Basophils <0.03 0.00 - 0.20 10e3/uL 04/10/2025 1:41 PM CDT [facility] Absolute Immature Granulocytes 0.04 <=0.40 10e3/uL 04/10/2025 1:41 PM CDT [facility] Absolute NRBCs <0.03 10e3/uL 04/10/2025 1:41 PM CDT [facility] Blood STRUCTURE OF LEFT UPPER LIMB / Unknown Venipuncture / Unknown 04/10/2025 1:18 PM CDT 04/10/2025 1:24 PM CDT Arturo Mcduffie MD LAB - BLOOD ORDERABLES Final Result Performing Organization Address City/State/[facility] Co de Phone Number [facility] [address] (1st floor, no room number) [place] [address] * (ABNORMAL) D dimer quantitative (04/10/2025 1:18 PM CDT) D-Dimer Quantitative 2.20(H) 0.00 - 0.50 ug/mL FEU 04/10/2025 1:57 PM CDT [facility] Blood STRUCTURE OF LEFT UPPER LIMB / Unknown Venipuncture / Unknown 04/10/2025 1:18 PM CDT 04/10/2025 1:24 PM CDT Narrative [facility] - 04/10/2025 1:57 PM CDT This D-dimer assay is intended for use in conjunction with a clinical pretest probability assessment model to exclude pulmonary embolism (PE) and deep venous thrombosis (DVT) in outpatients suspected of PE or DVT. The cut-off value is 0.50 ug/mL FEU. For patients 50 years of age or older, the application of age-adjusted cut-off values for D-Dimer may increase the specificity without significant effect on sensitivity. The literature suggested calculation age adjusted cut-off in ug/L = age in years x 10 ug/L. The results in this laboratory are reported as ug/mL rather than ug/L. The calculation for age adjusted cut off in ug/mL= age in years x 0.01 ug/mL. For example, the cut off for a 76 year old male is 75 x 0.01 ug/mL = 0.76 ug/mL (760 ug/L). M Morenohipreethi et al. Age adjusted D-dimer cut-off levels to rule out pulmonary embolism: The ADJUST-PE Study. LALO 2014;311:2110-6062.; LUISANA Snider et al. Diagnostic accuracy of conventional or age adjusted D-dimer cutoff values in older patients with suspected venous thromboembolism. Systemic review and meta-analysis. BMJ 2013:346:f2492. Arturo Mcduffie MD LAB - BLOOD ORDERABLES Final Result LABORATORY [facility] [address] Lab (1st floor, no room number) [place] [address] * Magnesium (Limited Occurrences) (04/10/2025 1:18 PM CDT) Magnesium 1.9 1.7 - 2.3 mg/dL 04/10/2025 2:03 PM CDT LABORATORY Blood STRUCTURE OF LEFT UPPER LIMB / Unknown Venipuncture / Unknown 04/10/2025 1:18 PM CDT 04/10/2025 1:24 PM CDT Arturo Mcduffie MD LAB - BLOOD ORDERABLES Final Result Performing Organization Address [facility]/ZIP Co de Phone Number LABORATORY [facility] [address] (1st floor, no room number) [place] [phone] * Troponin T, High Sensitivity (04/10/2025 1:18 PM CDT) Troponin T, High Sensitivity 7 <=22 ng/L 04/10/2025 2:03 PM CDT LABORATORY Comment: Either a High Sensitivity Troponin T baseline (0 hours) value = 100 ng/L, or an increase in High Sensitivity Troponin T = 7 ng/L at 2 hours compared to 0 hours (2-0 hours), suggests myocardial injury, and urgent clinical attention is required. If the 2-0 hours increase is <7 ng/L, a High Sensitivity Troponin T result above gender-specific reference ranges warrants further evaluation. Recommendations for further evaluation include correlation with clinical decision-making tool (e.g., HEART), a 3rd High Sensitivity Troponin T test 2 hours after the 2nd (a 20% change from baseline would represent concern), admission for observation, close PCC/cardiology follow-up, or urgent outpatient provocative testing. Blood STRUCTURE OF LEFT UPPER LIMB / Unknown Venipuncture / Unknown 04/10/2025 1:18 PM CDT 04/10/2025 1:24 PM CDT Arturo Mcduffie MD LAB - BLOOD ORDERABLES Final Result [facility] [address] Lab (1st floor, no room number) [place] [address], [facility] * (ABNORMAL) Basic Metabolic Panel (Limited Occurrences) (04/10/2025 1:18 PM CDT) Sodium 135 135 - 145 mmol/L 04/10/2025 2:03 PM CDT LABORATORY Potassium 4.8 3.4 - 5.3 mmol/L 04/10/2025 2:03 PM CDT LABORATORY Chloride 99 98 - 107 mmol/L 04/10/2025 2:03 PM CDT LABORATORY Carbon Dioxide (CO2) 24 22 - 29 mmol/L 04/10/2025 2:03 PM CDT LABORATORY Anion Gap 12 7 - 15 mmol/L 04/10/2025 2:03 PM CDT LABORATORY Urea Nitrogen 22.4(H) 6.0 - 20.0 mg/dL 04/10/2025 2:03 PM CDT LABORATORY Creatinine 1.40(H) 0.67 - 1.17 mg/dL 04/10/2025 2:03 PM CDT LABORATORY GFR Estimate 59(L) >60 mL/min/1.7 3m2 04/10/2025 2:03 PM CDT LABORATORY Comment:eGFR calculated usin g 2020 CKD-EPI equation. Calcium 9.7 8.8 - 10.4 mg/dL 04/10/2025 2:03 PM CDT LABORATORY Glucose 145(H) 70 - 99 mg/dL 04/10/2025 2:03 PM CDT LABORATORY Blood STRUCTURE OF LEFT UPPER LIMB / Unknown Venipuncture / Unknown 04/10/2025 1:18 PM CDT 04/10/2025 1:24 PM CDT Arturo Mcduffie MD LAB - BLOOD ORDERABLES Final Result LABORATORY [facility] [address] Lab (1st floor, no room number) [place] [address], [facility] * Extra Purple Top Tube (04/10/2025 1:18 PM CDT) Hold Specimen [facility] 04/10/2025 2:32 PM CDT [facility] Blood STRUCTURE OF LEFT UPPER LIMB / Unknown Venipuncture / Unknown 04/10/2025 1:18 PM CDT 04/10/2025 1:24 PM CDT Arturo Mcduffie MD LAB - BLOOD ORDERABLES Final Result [facility] [address] Lab (1st floor, no room number) [place] [address], [facility] * Extra Green Top ([place] Heparin) Tube (04/10/2025 1:18 PM CDT) Hold Specimen [facility] 04/10/2025 2:32 PM CDT [facility] Blood STRUCTURE OF LEFT UPPER LIMB / Unknown Venipuncture / Unknown 04/10/2025 1:18 PM CDT 04/10/2025 1:24 PM CDT Arturo Mcduffie MD LAB - BLOOD ORDERABLES Final Result [facility] [address] Lab (1st floor, no room number) [place] [address], [facility] * Extra Red Top Tube (04/10/2025 1:18 PM CDT) Hold Specimen [facility] 04/10/2025 2:32 PM CDT [facility] Blood STRUCTURE OF LEFT UPPER LIMB / Unknown Venipuncture / Unknown 04/10/2025 1:18 PM CDT 04/10/2025 1:24 PM CDT us Arturo Mcduffie MD LAB - BLOOD ORDERABLES Final Result [facility] [address] Lab (1st floor, no room number) [place] [address] * Extra Blue Top Tube (04/10/2025 1:18 PM CDT) Hold Specimen [facility] 04/10/2025 2:32 PM CDT LABORATORY Blood STRUCTURE OF LEFT UPPER LIMB / Unknown Venipuncture / Unknown 04/10/2025 1:18 PM CDT 04/10/2025 1:24 PM CDT us Arturo Mcduffie MD LAB - BLOOD ORDERABLES Final Result LABORATORY [facility] [address] Lab (1st floor, no room number) [place] [address] * EKG 12 lead (04/10/2025 1:15 PM CDT) Systolic Blood Pressure mmHg RADIOLOGY RESULTS Diastolic Blood Pressure mmHg RADIOLOGY RESULTS Ventricular Rate 84 BPM RAD IOLOGY RESULTS Atrial Rate 84 BPM RADIOLOG Y RESULTS CT Interval 150 ms RADIOLOG Y RESULTS QRS Duration 88 ms RADIOLO GY RESULTS QT 366 ms RADIOLOGY RESULTS QTc 432 ms RADIOLOGY RESULTS P [place] 61 degrees RADIOLOGY RESULTS R AXIS 91 degrees RADIOLOGY RESULTS T [place] 58 degrees RADIOLOGY RESULTS Interpretation ECG Sinus rhythm Rightward axis Borderline ECG No previous ECGs available Unconfirmed report - interpretation of this ECG is computer generated - see medical record for final interpretation Confirmed by - EMERGENCY ROOM, PHYSICIAN ([id number]), manuscript editor Hai Mendez ([id number]) on 04/10/2025 2:38:07 PM RADIOLOGY RESULTS 04/10/2025 1:15 PM CDT 04/10/2025 2:38 PM CDT Arturo Mcduffie MD ECG ORDERABLES Edited Result - Final RADIOLOGY RESULTS documented in this encounter Visit Diagnoses Diagnosis Syncope, unspecified syncope type- Primary Speech disturbance, unspecified type documented in this encounter Administered Medications Inactive Administered Medications - up to 3 most recent administrations Medication Order MAR Action Action Date Dose Rate Site iohexol (OMNIPAQUE) 350 MG/ML injectable solution 500 mL 500 mL, Intravenous, ONCE, On Thu04/10/25 at 1410, For 1 dose $Given 04/10/2025 2:09 PM CDT 71 mLs midazolam (VERSED) injection 0.5 mg 0.5 mg, Intravenous, Administer over 2 Minutes, ONCE, On Thu04/10/25 at 1330, For 1 dose, This drug may cause significant respiratory depression. Monitor respiratory status and vital signs carefully for 1 hour after each dose. $Given 04/10/2025 1:34 PM CDT 0.5 mg sodium chloride 0.9 % bag for CT scan flush As instructed, 100 mL, EVERY 1 HOUR PRN, line flush, Starting on Thu04/10/25 at 1409, For 12 hours, This entry is for use by Radiology to intermittently used as a flush in patients receiving a CT scan. $Given 04/10/2025 2:09 PM CDT 100 mLs sodium chloride 0.9% BOLUS 1,000 mL Intravenous, 1,000 mL, ONCE, at 1,000 mL/hr, Administer over 1 Hours, On Thu04/10/25 at 1330, For 1 dose $New Bag 04/10/2025 1:34 PM CDT 1,000 mLs 1000 mL/hr documented in this encounter Active and Recently Administered Medications Times are shown in CDT. Scheduled Medication Order 04/08/2025 04/09/2025 04/10/2025 iohexol (OMNIPAQUE) 350 MG/ML injectable solution 500 mL (COMPLETED) 500 mL, Intravenous, ONCE, On Thu04/10/25 at 1410, For 1 dose 1409 ($Given - Provi melida: JODEE LeeT) midazolam (VERSED) injection 0.5 mg (COMPLETED) 0.5 mg, Intravenous, Administer over 2 Minutes, ONCE, On Thu04/10/25 at 1330, For 1 dose, This drug may cause significant respiratory depression. Monitor respiratory status and vital signs carefully for 1 hour after each dose. 1334 ($Given - Provi melida: Ela Simms RN) sodium chloride 0.9% BOLUS 1,000 mL (COMPLETED) Intravenous, 1,000 mL, ONCE, at 1,000 mL/hr, Administer over 1 Hours, On Thu04/10/25 at 1330, For 1 dose 1334 ($New Bag - Pro vider: Ela Simms, RN)[id number] (Stopped - Provider: Ela Simms RN) PRN Medication Order 04/08/2025 04/09/2025 04/10/2025 sodium chloride 0.9 % bag for CT scan flush As instructed, 100 mL, EVERY 1 HOUR PRN, line flush, Starting on Thu04/10/25 at 1409, For 12 hours, This entry is for use by Radiology to intermittently used as a flush in patients receiving a CT scan. 1409 ($Given - Provi melida: JODEE LeeT) documented in this encounter Care Teams Jordan Worker Relationship Specialty Start Date End Date [facility], [place] [phone] PCP - General 03/07/25 documented as of this encounter
--- OUTSIDE RECORDS SUMMARY | 2025-04-21 22:59 | XMS_ITS | Encounter Summary ---
Author Organization [facility] Address [address] [place] [id number] Care Team Providers Care Chief Of Party Name Role Phone [facility] Primary Care Provider Encounter Details Date Type Department Care Team (Latest Contact Info) Description 04/10/2025 Travel Social History Tobacco Use Types Packs/Day Years Used Date Smoking Tobacco: Never Assessed Sex and Gender Information Value Date Recorded Sex Assigned at Not on file Legal Sex Male 2:13 PM CDT Gender Identity Not on file Sexual Orientation Not on file documented as of this encounter Plan of Treatment Not on file documented as of this encounter Visit Diagnoses Not on filedocumented in this encounter Care Teams Chief Of Party Relationship Specialty Start Date End Date [address] [address] PCP - General 03/07/25 documented as of this encounter
--- OUTSIDE RECORDS SUMMARY | 2025-04-21 22:59 | XMS_ITS | Clinical Summary ---
Author Organization [facility] Address [address] [place] [address] Care Team Providers Care Ticket Counter Name Role Phone Chantell Gonzalez Primary Care Provider [phone] Allergies No known active allergies Medications predniSONE (DELTASONE) 20 mg tablet TAKE 1 TABLET BY MOUTH ONCE DAILY FOR 5 DAYS 3 Active albuterol HFA (PRO-AIR; VENTOLIN; PROVENTIL) 90 mcg/actuation inhaler INHALE 2 PUFFS BY MOUTH EVERY 6 HOURS NEEDED FOR SHORTNESS OF BREATH AND FOR WHEEZING 3 Active acetaminophen (Tylenol Extra Strength) 500 mg tablet Take 2 Tablets (1,000 mg) by mouth every 6 hours. Max acetaminophen dose: 4000mg in 24 hrs. 0 3 Active fluticasone (50 mcg per actuation) nasal solution (FLONASE) Inhale 1 [place] into affected nostril(s) once daily. 16 g 3 Active guaiFENesin (Mucinex) 600 mg Extended-Relea se tablet Take 1 Tablet (600 mg) by mouth once daily if needed for Expectoration. 0 3 Active Social History Tobacco Use Types Packs/Day Years Used Date Smoking Tobacco: Never Smokeless Tobacco: Never Tobacco Cessation:Counseling Given: Not Answered Alcohol Use Standard Drinks/Week Comments Yes 0 (1 standard drink = 0.6 oz pur e alcohol) occ Social Connections Answer Date Recorded Frequency of Communication with Friends and Fami ly Not on file 01/15/2023 Sex and Gender Information Value Date Recorded Sex Assigned at Not on file Legal Sex Male 6:27 AM [employer] Gender Identity Not on file Sexual Orientation Not on file Obstetrics History Last Filed Vital Signs Vital Sign Reading Time Taken Comments Blood Pressure 140/98 01/15/2023 3:36 PM CDT Pulse 86 01/15/2023 3:36 PM CDT Temperature - - Respiratory Rate - - Oxygen Saturation 96% 01/15/2023 3:36 PM CDT Inhaled Oxygen Concentration - - Weight 97.1 kg (214 lb) 01/15/2023 3:36 PM CDT Height 185.4 cm (6' 1) 01/15/2023 3:36 PM CDT Body Mass Index 28.23 01/15/2023 3:36 PM CDT Plan of Treatment Health Maintenance Due Date Last Done Comments Tetanus booster 1980 Depression screening for age 12+ 1981 HIV for age 15-65 1984 Hepatitis C screening for ag e 18-79 12/21/1987 Hepatitis B series for 19+ ( 1 of 3 - 19+ 3-dose series) 1988 Colonoscopy through age 75 2014 Pneumococcal series for age 50+ (1 of 1 - PCV) 12/21/2019 Zoster (shingles) series for age 50+ (1 of 2) 12/21/2019 BMI (ht and wt on same day) for age 18+ 01/16/2024 01/15/2023 COVID-19 vaccine series (2024- season) 2025 02/25/2022, 07/16/2021, 11/16/2020, Additional history exists Influenza Vaccine (#1) 2025 Lipids for age 45-75 01/16/2028 01/15/2023 RSV vaccine for adults or (1 - 1-dose 75+ series) 2044 Procedures Procedure Name Priority Date/Time Associated Diagnosis Comments LIPID PANEL Routine 01/15/2023 4:37 PM CDT Chest pain, unspecified type from Last 3 Months or Most Recently Relevant to Health Maintenance Results * (ABNORMAL) LIPID PANEL (01/15/2023 4:37 PM CDT) CHOLESTEROL,TOTAL 181 100 - 199 mg/dL 01/16/2023 2:25 PM CDT [facility] Comment: Cholesterol, Total Reference Ranges Desirable <200 mg/dL Borderline 200-239 mg/dL High >=240 mg/dL TRIGLYCERIDES 165(H) <150 mg/dL 01/16/2023 2:25 PM CDT [facility] HDL CHOLESTEROL 31(L) >40 mg/dL 2:25 PM CDT [facility] NON-HDL CHOLESTEROL 150(H) <145 mg/dl 01/16/2023 2:25 PM CDT [facility] CHOL/HDL RATIO 5.84(H) <4.50 01/16/2023 2:[address] [facility] LDL CHOLESTEROL 117 <=130 mg/dL 01/16/2023 2:25 PM CDT [facility] VLDL CHOLESTEROL 33(H) <=30 mg/dL 01/16/2023 2:[address] [facility] PROVIDER ORDERED STATUS RANDOM 01/16/2023 2:[address] [facility] Blood BLOOD SPECIMEN / Unknown Venipuncture / Unknown 01/15/2023 4:37 PM CDT 01/15/2023 4:37 PM CDT us Adilia Delgado MD CHEMISTRY Final R esult [facility] [address] [place] [address], from Last 3 Months or Most Recently Relevant to Health Maintenance Insurance [facility] Care Teams Ticket Counter Relationship Specialty Start Date End Date Chantell Gonzalez PCP - General 01/15/23
--- OUTSIDE RECORDS SUMMARY | 2025-04-21 23:00 | XMS_ITS | Clinical Summary ---
Author Organization [facility] Address [address] [place] [id number] Care Team Providers Care Quality Control Inspector Name Role Phone Clinic, [facility] Primary Care Provider Allergies No known active allergies Medications No known medications Encounters Date Type Department Care Team Description 04/10/2025 1:08 PM CDT - 04/10/2025 3:56 PM CDT Emergency [facility] Emergency Dept [address] [place] [address] Arturo Mcduffie MD Syncope, unspecified syncope type (Primary Dx); Speech disturbance, unspecified type Discharge Disposition: Home or Self Care 04/10/2025 Travel from Last 3 Months Social History Tobacco Use Types Packs/Day Years Used Date Smoking Tobacco: Never Assessed Sex and Gender Information Value Date Recorded Sex Assigned at Not on file Legal Sex Male 2:13 PM CDT Gender Identity Not on file Sexual Orientation Not on file Last Filed Vital Signs Vital Sign Reading [...] - - Body Mass Index - - Plan of Treatment Health Maintenance Due Date Last Done Comments ADVANCE CARE PLANNING 1969 ANNUAL REVIEW OF HM ORDERS 1969 CT COLONOGRAPHY 1969 FIT 1969 FLEX SIG 1969 sDNA (Cologuard) 1969 YEARLY PREVENTIVE VISIT 1972 COLONOSCOPY 12/21/1979 COLORECTAL CANCER SCREENING 12/21/1979 HIV SCREENING 1984 HEPATITIS C SCREENING 12/21/1987 HEPATITIS B VACCINE (1 of 3 - 19+ 3-dose series) 1988 PNEUMOCOCCAL VACCINE 50+ YEARS (1 of 1 - PCV) 12/21/2019 ZOSTER VACCINE (1 of 2) 12/21/2019 PHQ-2 (once per calendar year) 2024 COVID-19 VACCINE (2024- season) 2025 05/12/2024, 06/18/2023, 02/25/2022, Additional history exists INFLUENZA VACCINE (#1) 2025 , 06/18/2023, 06/04/2022, Additional history exists DIABETES SCREENING 04/10/2028 04/10/2025, 0 03/14/2025, 03/14/2025 LIPID 03/14/2030 03/14/2025 DTAP/TDAP/TD VACCINE (3 - Td or Tdap) 12/06/2033 12/07/2023, 10/27/2011 HPV VACCINE (No Doses Required) Completed MENINGITIS VACCINE Aged Out No longer eligible based on patient's age to complete this topic Procedures Procedure Name Priority Date/Time Associated Diagnosis Comments CTA HEAD NECK W CONTRAST STAT 04/10/2025 2:[address] CHEST PULMONARY EMBOLISM W CONTRAST STAT 04/10/2025 2:[address] HEAD W/O CONTRAST STAT 04/10/2025 2:19 PM CDT CBC WITH PLATELETS AND DIFFERENTIAL (LIMITED OCCURRENCES) STAT 04/10/2025 1:18 PM CDT CBC WITH PLATELETS AND DIFFERENTIAL STAT 04/10/2025 1:18 PM CDT D DIMER QUANTITATIVE STAT 04/10/2025 1:18 PM CDT MAGNESIUM (LIMITED OCCURRENCES) STAT 04/10/2025 1:18 PM CDT TROPONIN T, HIGH SENSITIVITY STAT 04/10/2025 1:18 PM CDT BASIC METABOLIC PANEL (LIMITED OCCURRENCES) STAT 04/10/2025 1:18 PM CDT EXTRA PURPLE TOP TUBE STAT 04/10/2025 1:18 PM CDT EXTRA GREEN TOP (LITHIUM HEPARIN) TUBE STAT 04/10/2025 1:18 PM CDT EXTRA RED TOP TUBE STAT 04/10/2025 1: 18 PM CDT EXTRA BLUE TOP TUBE STAT 04/10/2025 1 :18 PM CDT EXTRA TUBE STAT 04/10/2025 1:18 PM CDT EKG 12-LEAD, TRACING ONLY STAT 04/10/2025 1:15 PM CDT POTASSIUM (EXTERNAL RESULT) Routine 03/14/2025 2:08 PM CDT CREATININE (EXTERNAL RESULT) Routine 03/14/2025 2:08 PM CDT GLUCOSE (EXTERNAL RESULT) Routine 03/14/2025 2:08 PM CDT HEMOGLOBIN A1C (EXTERNAL RESULT) Routine 03/14/2025 2:08 PM CDT ALT (EXTERNAL RESULT) Routine 03/14/2025 2:08 PM CDT AST (EXTERNAL RESULT) Routine 03/14/2025 2:08 PM CDT LIPID PANEL (EXTERNAL RESULT) Routine 03/14/2025 2:08 PM CDT LAB RESULT - HIM SCAN 03/14/2025 12:00 AM CDT EKG CARDIAC - HIM SCAN 03/14/2025 12:00 AM CDT from Last 3 Months Results * CTA Head Neck with Contrast (04/10/2025 2:25 PM CDT) Anatomical Region Laterality Modality Head, SUBRAD CT NEURO, SUBRA D CT NEURO, UMP CT NEURO, RAD CT Computed Tomography 04/10/2025 2:25 PM CDT Impressions 04/10/2025 2:41 PM CDT IMPRESSION: HEAD CTA: 1. No large vessel occlusion, dissection, hemodynamic stenosis or aneurysm. Satisfactory branch arborization pattern and caliber bilateral SAHARA, MCA and PAPERHANGER CONTRACTOR distribution. No pathologic enhancement intracranially. Dural venous sinus enhancement is normal. NECK CTA: 1. No hemodynamic stenosis or dissection of the major neck arteries or at the great vessel origin level. No pathologic enhancement in the neck. Narrative 04/10/2025 2:41 PM CDT EXAM: CTA HEAD NECK W CONTRAST LOCATION: [facility] DATE: 04/10/2025 INDICATION: Syncope, recent dizziness. [...] aneurysm, or high flow vascular malformation. Standard [place] anatomy. Satisfactory peripheral branch arborization pattern and caliber bilateral SAHARA and MCA distribution. POSTERIOR CIRCULATION: No stenosis/occlusion, aneurysm, or high flow vascular malformation. Balanced vertebral arteries supply a normal basilar artery. Satisfactory peripheral branch arborization pattern and caliber bilateral PAPERHANGER CONTRACTOR distribution. DURAL VENOUS SINUSES: Expected enhancement of [...] EXAM: CTA HEAD NECK W CONTRAST LOCATION: [facility] DATE: 04/10/2025 INDICATION: Syncope, recent dizziness. [...] stenosis/occlusion, aneurysm, or high flowvascular malformation. Standard [place] anatomy. Satisfactoryperipheral branch arborization pattern and caliber bilateral SAHARA and MCAdistribution. POSTERIOR CIRCULATION: No stenosis/occlusion, aneurysm, or high flowvascular malformation. Balanced vertebral arteries supply a normal basilarartery. Satisfactory peripheral branch arborization pattern and caliberbilateral PAPERHANGER CONTRACTOR distribution. DURAL VENOUS SINUSES: Expected enhancement of [...] arborization pattern and caliber bilateralACA, MCA and PAPERHANGER CONTRACTOR distribution. No pathologic enhancement intracranially.Dural venous sinus enhancement is normal. NECK CTA: 1. No hemodynamic stenosis or dissection of the major neck arteries or atthe great vessel origin level. No pathologic enhancement in the neck. Arturo Mcduffie MD IM CT ORDERABLES Final Resul t * CT [...] CT CHEST PULMONARY EMBOLISM W CONTRAST LOCATION: [facility] DATE: 04/10/2025 INDICATION: SOB, elevated D-dimer. [...] UPPER ABDOMEN: Normal. MUSCULOSKELETAL: Normal. Procedure Note Artemio Abraham MD - 04/10/2025 EXAM: CT CHEST PULMONARY EMBOLISM W CONTRAST LOCATION: [facility] DATE: 04/10/2025 INDICATION: SOB, elevated D-dimer. [...] CDT EXAM: CT HEAD W/O CONTRAST LOCATION: [facility] DATE: 04/10/2025 INDICATION: Syncope, recent dizziness. [...] 04/10/2025 EXAM: CT HEAD W/O CONTRAST LOCATION: [facility] DATE: 04/10/2025 INDICATION: Syncope, recent dizziness. [...] ispatent. IMPRESSION: 1. No acute intracranial process. Arturo Mcduffie MD IMG CT ORDERABLES Final Resul t * Extra Purple Top Tube (04/10/2025 1:18 PM CDT) Hold Specimen [facility] 04/10/2025 2:32 PM CDT LABORATORY Blood STRUCTURE OF LEFT UPPER LIMB / Unknown Venipuncture / Unknown 04/10/2025 1:18 PM CDT 04/10/2025 1:24 PM CDT Arturo Mcduffie MD LAB - BLOOD ORDERABLES Final Result Performing Organization Address City/[facility]/ZIP Co de Phone Number [facility] Lab [address] Lab (1st floor, no room number) [place] [phone] * Extra Green Top (Hadar Heparin) Tube (04/10/2025 1:18 PM CDT) Hold Specimen [facility] 04/10/2025 2:32 PM CDT LABORATORY Blood STRUCTURE OF LEFT UPPER LIMB / Unknown Venipuncture / Unknown 04/10/2025 1:18 PM CDT 04/10/2025 1:24 PM CDT Arturo Mcduffie MD LAB - BLOOD ORDERABLES Final Result [facility] [address] Lab (1st floor, no room number) [place] [address] * Extra Red Top Tube (04/10/2025 1:18 PM CDT) Hold Specimen [facility] 04/10/2025 2:32 PM CDT RH LABORATORY Blood STRUCTURE OF LEFT UPPER LIMB / Unknown Venipuncture / Unknown 04/10/2025 1:18 PM CDT 04/10/2025 1:24 PM CDT Arturo Mcduffie MD LAB - BLOOD ORDERABLES Final Result LABORATORY [facility] [address] Lab (1st floor, no room number) [place] [phone] * Extra Blue Top Tube (04/10/2025 1:18 PM CDT) Hold Specimen C 04/10/2025 2:32 PM CDT RH LABORATORY Blood STRUCTURE OF LEFT UPPER LIMB / Unknown Venipuncture / Unknown 04/10/2025 1:18 PM CDT 04/10/2025 1:24 PM CDT Arturo Mcduffie MD LAB - BLOOD ORDERABLES Final Result LABORATORY [facility] Lab [address] Lab (1st floor, no room number) [address] * CBC with platelets and differential (04/10/2025 [...] - BLOOD ORDERABLES Final Result RH LABORATORY [facility] Lab [address] Lab (1st floor, no room number) [place] [address], [facility] * (ABNORMAL) Basic Metabolic [...] LAB - BLOOD ORDERABLES Final Result LABORATORY [facility] Lab [address] Lab (1st floor, no room number) [place] [address] * Magnesium (Limited Occurrences) (04/10/2025 1:18 PM CDT) Magnesium 1.9 1.7 - 2.3 mg/dL 04/10/2025 2:03 PM CDT LABORATORY Blood STRUCTURE OF LEFT UPPER LIMB / Unknown Venipuncture / Unknown 04/10/2025 1:18 PM CDT 04/10/2025 1:24 PM CDT Arturo Mcduffie MD LAB - BLOOD ORDERABLES Final Result [facility] [address] Lab (1st floor, no room number) [place] [address] * Troponin T, High Sensitivity (04/10/2025 1:18 [...] MD LAB - BLOOD ORDERABLES Final Result [facility] Lab [address] Lab (1st floor, no room number) [place] [address] * (ABNORMAL) D dimer quantitative (04/10/2025 1:18 [...] ug/mL = 0.76 ug/mL (760 ug/L). M Eduardo et al. Age adjusted D-dimer cut-off levels to rule out pulmonary embolism: The ADJUST-PE Study. LALO 2014;311:0897-4653.; HJ Tylor et al. Diagnostic accuracy of conventional or age adjusted D-dimer cutoff values in older patients with suspected venous thromboembolism. Systemic review and meta-analysis. BMJ 2013:346:f2492. us Arturo Mcduffie MD LAB - BLOOD ORDERABLES Final Result RH LABORATORY [facility] Lab [address] Lab (1st floor, no room number) [place] [address], [facility] * EKG 12 lead (04/10/2025 1:15 PM CDT) Systolic Blood Pressure mmHg RADIOLOGY RESULTS Diastolic Blood Pressure mmHg RADIOLOGY RESULTS Ventricular Rate 84 BPM RAD IOLOGY RESULTS Atrial Rate 84 BPM RADIOLOG Y RESULTS IL Interval 150 ms RADIOLOG Y RESULTS QRS Duration 88 ms RADIOLO GY RESULTS QT 366 ms RADIOLOGY RESULTS QTc 432 ms RADIOLOGY RESULTS P [place] 61 degrees RADIOLOGY RESULTS R AXIS 91 degrees RADIOLOGY RESULTS T [place] 58 degrees RADIOLOGY RESULTS Interpretation ECG Sinus rhythm Rightward axis Borderline ECG No previous ECGs available Unconfirmed report - interpretation of this ECG is computer generated - see medical record for final interpretation Confirmed by - EMERGENCY ROOM, PHYSICIAN ([id number]), material expeditor Hai Mendez ([id number]) on 04/10/2025 2:38:07 PM RADIOLOGY RESULTS 04/10/2025 1:15 PM CDT 04/10/2025 2:38 PM CDT Arturo Mcduffie MD ECG ORDERABLES Edited Result - Final RADIOLOGY RESULTS * Potassium (External Result) (03/14/2025 2:08 PM CDT) Pathologist [facility] Potassium (External) 4.5 3.6 - 5.1 mmol/L [facility] Blood 03/14/2025 2:08 PM CDT Narrative [facility] - 03/14/2025 2:08 PM CDT [facility] - External Lab Results us Provider Outside LAB - HIM EXTERNAL RESULT Final Result [facility] [address] [place] [address], [facility] [phone] * (ABNORMAL) Lipid Panel (External Result) (03/14/2025 2:08 PM CDT) Cholesterol (External) 200(A) 90 - 119 mg/dL [facility] Triglycerides (External) 172(A) 40 - 149 mg/dL [facility] HDL Cholesterol (External) 37(A) >=40 mg/dL [facility] LDL Cholesterol Calculated (External) 129 <100 mg/dL [facility] Blood 03/14/2025 2:08 PM CDT [facility] - 03/14/2025 2:[address] [facility] - External Lab Results us Provider Outside LAB - HIM EXTERNAL RESULT Final Result Performing Organization Address City/[facility]/ZIP Co de Phone Number [facility] [address] [place] [address], [facility] [phone] * Hemoglobin A1c (External Result) (03/14/2025 2:08 PM CDT) Hemoglobin A1C (External) 5.5 0 - 5.6 % [facility] Blood 03/14/2025 2:08 PM CDT [facility] - 03/14/2025 2:[address] [facility] - External Lab Results us Provider Outside LAB - HIM EXTERNAL RESULT Final Result Performing Organization Address City/[facility]/ZIP Co de Phone Number [facility] [address] [place] [address], [facility] [phone] * Glucose (External Result) (03/14/2025 2:08 PM CDT) Glucose (External) 102 60 - 115 mg/dL [facility] Blood 03/14/2025 2:08 PM CDT [facility] - 03/14/2025 2:[address] [facility] - External Lab Results us Provider Outside LAB - HIM EXTERNAL RESULT Final Result Performing Organization Address City/[facility]/ZIP Co de Phone Number [facility] [address] [place] [address], [facility] [phone] * Creatinine (External Result) (03/14/2025 2:08 PM CDT) Creatinine (External) 1.2 0.5 - 1.5 mg/dL [facility] Blood 03/14/2025 2:08 PM CDT [facility] - 03/14/2025 2:[address] [facility] - External Lab Results us Provider Outside LAB - HIM EXTERNAL RESULT Final Result Performing Organization Address [facility] Co de Phone Number [address] [id number] [phone] * AST (External Result) (03/14/2025 2:08 PM CDT) AST (External) 33 12 - 35 U/L [facility] Blood 03/14/2025 2:08 PM CDT [facility] - 03/14/2025 2:[address] [facility] - External Lab Results us Provider Outside LAB - HIM EXTERNAL RESULT Final Result Performing Organization Address [facility] de Phone Number [address] [phone] [phone] * ALT (External Result) (03/14/2025 2:08 PM CDT) ALT (External) 30 4 - 50 U/L [facility] Blood 03/14/2025 2:08 PM CDT [facility] - 03/14/2025 2:[address] [facility] - External Lab Results us Provider Outside LAB - HIM EXTERNAL RESULT Final Result Performing Organization Address [facility] Co de Phone Number [address] [phone] [phone] * Lab Result - HIM Scan (03/14/2025 12:00 AM CDT) 03/14/2025 us Provider Outside [facility] NON-BEAKER LAB TESTING Final Result * EKG Cardiac - HIM Scan (03/14/2025 12:00 AM CDT) 03/14/2025 us Provider Outside ECG ORDERABLES Final Result from Last 3 Months Insurance BCBS OUT OF STATE BCBS OUT OF STATE Care Teams Quality Control Inspector Relationship Specialty Start Date End Date Clinic, [facility] [address] [place] [phone] PCP - General 03/07/25
[2025-04-21 23:11] VITALS: BP 166/105; PULSE 118; RESP 16; TEMP 36.7; O2SAT 98; BMI 28.4
--- NOTE | 2025-04-21 23:56 | ED.GENADULT ---
HPI - General Adult General Time Seen by Provider: 23:56 Date Seen: 04/21/25 Chief complaint: Constipation Stated complaint: unable to poop Time Seen by Provider: 04/21/25 23:56 Source: patient and RN notes reviewed Mode of arrival: ambulatory Limitations: no limitations History of Present Illness HPI narrative: This 54-year-old male is coming in with concern of constipation, rectal pain and inability to defecate. On April 05 he had a right ACL repair, stop narcotics by April 09. He has been having problems with irregular bowel movement since then. He has been taking Colace and MiraLax. He has tried a suppository, 6 oz of magnesium citrate at 9:00 p.m. tonight. He has tried hot coffee, hot tea. He attempted a warm water bulb syringe enema. He states he is feeling bloated, he feels rectal pressure. He feels like there is a large stool mass at his rectum. He had nausea earlier but has not vomited. No fevers. Related Data Home Medications ?Medication ?Instructions ?Recorded ?Confirmed fluticasone propionate 50 1 spray intranasal DAILY PRN 11/05/22 04/20/25 mcg/actuation nasal spray,suspension (24 Hour Allergy Relief) acetaminophen 500 mg tablet 1,000 mg PO Q6H PRN 04/20/25 04/20/25 docusate sodium 50 mg capsule 50 mg PO QDAY PRN 04/20/25 04/20/25 (Colace Clear) Previous Rx's ?Medication ?Instructions ?Recorded ondansetron 4 mg disintegrating 4 mg PO Q8H PRN nausea and 04/20/25 tablet vomiting #30 tabs Allergies Allergy/AdvReac Type Severity Reaction Status Date / Time NSAIDS (Non-Steroidal AdvReac Unknown Verified 04/20/25 09:56 Anti-Inflamma Review of Systems Narrative: As per HPI. PFS PFS Medical History Bronchitis ?J40 - Bronchitis, not specified as acute or chronic (ICD-10) Basal cell carcinoma (04/06/10) ?C44.91 - Basal cell carcinoma of skin, unspecified (ICD-10) Surgical History History of vasectomy ?Z98.52 - Vasectomy status (ICD-10) History of kidney donation ?Z90.5 - Acquired absence of kidney (ICD-10) Family History Maternal Grandmother Breast cancer Family/Other Coronary artery disease Father Polymyalgia rheumatica Uncle Polymyalgia rheumatica Social History Narrative: Has 2 children Non-smoker What is your current living situation?: I presently have a place to live Problems where you live: no known problems In the past 12 months, utilities in danger of being shut off: no In past 12 months, lack of transportation kept you from medical appts, meetings, work, or getting things needed for daily living: no In the past 12 mos, have been you worried that your food would run out before you had money to buy more?: never true In the past 12 mos, the food you bought just didn't last and you didn't have money to buy more?: never true Smoking Status: Never smoker Do you use any of these nicotine containing products: None Second hand tobacco smoke exposure: No How often do you have a drink containing alcohol: 2-3 times a week How many standard drinks containing alcohol do you have on a typical day: 1 or 2 How often do you have six or more drinks on one occasion: Never AUDIT-C Alcohol total score: 3 Non-prescribed substance use: denies use How often does anyone, including family, friends and others, physically hurt you: never How often does anyone, including family, friends and others, insult or talk down to you: never How often does anyone, including family, friends and others, threaten you with harm: never How often does anyone, including family, friends and others, scream or curse at you: never Exam Const: Vital Signs, click to edit/add: Vital Signs - 24 hr 04/21/25 23:11 04/22/25 00:23 Temperature 98.0 F Pulse Rate [Pulse Oximeter] 118 H Respiratory Rate 16 Blood Pressure [Ri ght Upper Arm] 166/105 H Pulse Oximetry 98 95 Oxygen Delivery Me thod Room Air This 54-year-old male is lying on his side in the bed in exam room 5, states he feels less pressure that way. He is alert, interactive, looks uncomfortable. Sclera clear, speech normal, able speak in complete sentences. Lungs are clear, good air entry, no wheezing or crackles, no tachypnea, no accessory muscle use. CV regular rate and rhythm, no murmur normal S1-S2. Abdomen is soft, somewhat active bowel sounds but not hyperactive. Abdomen is soft, nontender, nondistended, no rebound or guarding, no organomegaly. His anus appears normal, see no hemorrhoidal tissue. Digital rectal exam done and there was discomfort with this but there is no stool that is palpable in the rectal vault. Documenting provider has reviewed patient's vital signs: yes Course Course ED Course: We are going to proceed with doing flat and upright imaging to look at the character of his bowels. Have reviewed with them that this helps me see exactly where his stool is and enemas and therapy from below will even be helpful. We did discuss the Enemeez if it looks like some of the stool is low enough. We reviewed that this has a numbing medicine and often will allow for relaxation and aide in defecation. Otherwise, we may need to work from above. Reevaluation(s) Time of Reevaluation #1: 00:43 Reevaluation #1: Have reviewed with patient and his that his abdominal imaging is showing air-fluid levels, there is some dilated bowel. There is no stool in the rectal vault on the imaging. He really has no significant stool burden. Think we need to proceed with CT imaging, have ordered an IV to be placed and labs as well. We will initiate some IV fluids. 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 He does understand that he will be getting IV contrast but I will also give him some IV fluids. We will do just a low dose of fentanyl to try to improve his pain. He found the oral Zofran was quite constipating for him, had problems with nausea with the initial narcotics. We will see how he tolerates the fentanyl, could consider different antiemetic if needed. Time of Reevaluation #2: 01:29 Reevaluation #2: On patient's CT imaging, could see quite a distended bladder. Patient did subsequently admit that he feels like he has not been emptying completely the last couple days. Did not notice significant symptoms prior. He thought it was just problems with stool causing issues with bladder emptying. His bladder scan is showing at least a L. He was uncomfortable with just getting images for the bladder scan. We are going to place a Ly catheter. He does note that when he was donating a kidney, there were issues with getting a catheter in, required pediatric size and there was still some difficulty. Nursing staff is aware. Time of Reevaluation #3: 02:21 Reevaluation #3: Patient's CT has been reviewed. They did not comment on his enlarged bladder but patient is feeling much better after his bladder is draining here with the catheter. We did discuss his bowels., there are air-fluid levels any is feeling a little crampy. This could be from the magnesium citrate in the medications he used to try to stimulate stooling. He really has no stool buildup. He will need to leave the Ly catheter in, follow-up next week and they can consider a trial urination. Vital Signs Vital signs: Initial Vital Signs Temperature 98.0 F 04/21/25 23:11 Temperature Source Temporal Artery Scan 04/21/25 23:11 Pulse Rate 118 H 04/21/25 23:11 Respiratory Rate 16 04/21/25 23:11 Blood Pressure 166/105 H 04/21/25 23:11 Blood Pressure Mean 125 H 04/21/25 23:11 Blood Pressure Position Sitting 04/21/25 23:11 Pulse Oximetry 98 04/21/25 23:11 Oxygen Delivery Method Room Air 04/21/25 23:11 Vital Signs Temperature 98.0 F 04/21/25 23:11 Pulse Rate 118 H 04/21/25 23:11 Respiratory Rate 16 04/21/25 23:11 Blood Pressure 166/105 H 04/21/25 23:11 Pulse Oximetry 98 04/21/25 23:11 Oxygen Delivery Method Room Air 04/21/25 23:11 Temperature 98.0 F 04/21/25 23:11 Pulse Rate 118 H 04/21/25 23:11 Respiratory Rate 16 04/21/25 23:11 Blood Pressure 166/105 H 04/21/25 23:11 Pulse Oximetry 95 04/22/25 00:23 Oxygen Delivery Method Room Air 04/21/25 23:11 Medications Administered Medications: Generic Name Dose Route Start Last Admin Trade Name Derrickq PRN Reason Stop Dose Admin Sodium Chloride 1,000 mls @ 500 mls/hr 04/22/25 00:43 04/22/25 00:58 0.9 % Sodium Chloride 1000 Ml IV 04/22/25 02:42 500 mls/hr .Q2H ARTURO Administration Lidocaine HCl 6 ml 04/22/25 01:34 04/22/25 01:50 Lidocaine Hcl 2 % Jelly (Top) Sterile UR 6 ml ONCE PRN Administration Discontinued Medications Generic Name Dose Route Start Last Admin Trade Name Demetrius PRN Reason Stop Dose Admin Fentanyl 25 mcg 04/22/25 00:43 04/22/25 00:57 Fentanyl 100 Mcg/2 Ml Inj IVP 04/22/25 00:44 25 mcg ONCE ONE Administration Medical Decision Making Lab Data Lab results reviewed: Yes I reviewed the patient's lab results Labs: Lab Results 04/22/25 04/22/25 Range/Units 00:33 01:49 WBC 9.46 (4.50-11.00) K/uL RBC 4.47 (4.30-5.90) m/uL Hgb 13.4 L (13.5-17.5) gm/dL Hct 39.7 (37.0-53.0) % MCV 89 (80-100) fL MCH 30 (26-34) pg MCHC 34 (32-36) gm/dL RDW Coeff of Karissa 12.0 (11.5-15.5) % Plt Count 279 (140-440) K/uL Neut % (Auto) 70.7 (42.0-72.0) % Lymph % (Auto) 15.5 L (20-44) % [facility] % (Auto) 12.9 H (0.0-11.0) % Eos % (Auto) 0.6 (0.0-7.0) % Baso % (Auto) 0.2 (0.0-3.0) % Neut # (Auto) 6.68 (1.7-7.0) K/uL Lymph # (Auto) 1.50 (0.90-2.90) K/uL [facility] # (Auto) 1.20 H (0.00-0.90) K/UL Eos # (Auto) 0.06 (0.00-0.50) K/uL Baso # (Auto) 0.02 (0.00-0.30) K/uL Abs Immat Gran (auto) 0.01 (0.00-0.30) K/uL Imm/Tot Granulo (auto) 0.1 % Sodium 133 L (135-149) mmol/L Potassium 4.4 (3.6-5.1) mmol/L Chloride 98 (96-114) mmol/L Carbon Dioxide 25 (20-32) mmol/L Anion Gap 10 (7-15) mEq/L BUN 17 (7-30) mg/dL Creatinine 1.1 (0.5-1.5) mg/dL Estimated Creat Clear 85.75 Estimated GFR 79 ml/min Glucose 129 H (60-115) mg/dL Lactate 1.5 (0.5-1.9) mmol/L Calcium 9.3 (8.4-10.6) mg/dL Total Bilirubin 1.1 (0.1-1.5) mg/dL AST 32 (12-35) U/L ALT 40 (4-50) U/L Alkaline Phosphatase 133 (40-150) U/L C-Reactive Protein 8.4 H (0.5-1.0) mg/dL Total Protein 7.4 (6.0-8.3) g/dL Albumin 3.9 (3.3-5.0) g/dL Urine Color Yellow (Yellow) Urine Appearance Clear (Clear) Urine pH 6.0 (5.0-8.5) Ur Specific Lovell 1.015 (1.000-1.030) Urine Protein Negative (Negative) Urine Glucose (UA) Negative (Negative) Urine Ketones Negative (Negative) Urine Blood 1+ A (Negative) Urine Nitrite Negative (Negative) Urine Bilirubin Negative (Negative) Urine Urobilinogen 0.2 (0.2-1.0) Ur Leukocyte Esterase Negative (Negative) Urine RBC 2-5 A (0-2) Urine WBC 0-2 (0-5) Ur Squamous Epith Cells Few (None-Few) Urine Bacteria None (None) Imaging Data Abdominal x-ray: Attestation: I have reviewed the pertinent imaging results. My impression: I see air-fluid levels, no significant stool, certainly no stool in the rectal vault. I see a lot of gas filled bowel but not much stool. Radiologist's impression: Patient: ISMAEL MENCHACA Facility:?[facility] Patient ID:?[id number] Site Patient ID:?[id number]. Site :?[id number] Study:?XRay-Abdomen flat/upright-04/22/2025 12:19:17 AM Ordering Physician:Junie Gamino Final Report: Indication: Constipation. Technique: Abdomen 4 view. Comparison: None. Findings/Impression: Bowel: Bowel pattern is normal. Mild colonic stool burden. Soft tissues: No sign of free air. No sign of soft tissue mass. No suspicious calcifications. Bones: Unremarkable for age. Dictated by Mani Boyer MD @ 04/22/2025 1:06:06 AM (Electronic Signature) CT scan - abdomen: Attestation: I have reviewed the pertinent imaging results. Radiologist's impression: Patient: ISMAEL MENCHACA Facility:?[facility] Patient ID:?[id number] Site Patient ID:?[id number]. Site :?[id number] Study:?CT-Abdomen/Pelvis w/ 106cc [id number]/4/2025 1:18:48 AM Ordering Physician:?Charlette Gamino Final Report: INDICATION: Abnormal x-ray. Nausea, no stool TECHNIQUE: CT abdomen and pelvis acquired with 106 cc of Isovue 370 IV contrast. COMPARISON: None. FINDINGS: Lower chest: Unremarkable. Liver: Unremarkable. Normal in size and attenuation. No suspicious masses. Gallbladder and bile ducts: Unremarkable. No stones or inflammation. No biliary dilatation. Pancreas: Unremarkable. No mass or inflammation. Spleen: Unremarkable. Normal in size. No masses. Adrenal glands: Unremarkable. No nodules. Kidneys: Absent left kidney. Unremarkable right kidney. No suspicious masses, stones, or hydronephrosis. GI tract: Small air-fluid levels throughout the colon. No mural thickening. No bowel obstruction. Normal appendix. Vasculature: Abdominal aorta is normal in caliber. Mesenteric arteries are patent. Lymph nodes: No lymphadenopathy. Peritoneum/Abdominal Wall: Unremarkable. No free air or significant free fluid. Pelvis: Unremarkable. Bones: Unremarkable for age. IMPRESSION: 1. Small air-fluid levels throughout the colon, which can be seen with a diarrheal illness. 2. Absent left kidney. 3. Otherwise, unremarkable CT of the abdomen and pelvis. Please note that all CT scans at this facility use dose modulation, iterative reconstruction, and/or weight-based dosing when appropriate to reduce radiation dose to as low as reasonably achievable. Dictated by Chino Melendez MD @ 04/22/2025 2:11:08 AM (Electronic Signature) Discharge Plan Discharge Clinical Impression: Acute urinary retention Patient Disposition: Home, Self-Care Condition: Stable Instructions: Urinary Retention in Men (ED), Ly Catheter Placement and Care (ED) Additional Instructions: You need to schedule follow-up in clinic with your primary care provider next week, trial of urination can be considered if they feel it is appropriate. Urine cultures pending, urinalysis looks normal but we certainly will notify you if the urine culture should grow anything requiring antibiotics. There is no evidence of any constipation or stool buildup. You may have some ongoing cramping from the bowel agents used including the magnesium citrate. In the morning, I would start with clear liquids. You may advance your diet back to normal as your hunger dictates. Make sure that you are passing gas and hungry before you advance your diet. If you have further concerns or issues, please seek re-evaluation. Activity Detail: Follow your postoperative orthopedic instructions for activity. Prescriptions: No Action Colace Clear 50 mg capsule 50 mg PO QDAY PRN acetaminophen 500 mg tablet 1,000 mg PO Q6H PRN ondansetron 4 mg tablet,disintegrating 4 mg PO Q8H PRN (Reason: nausea and vomiting) Qty: 30 1RF fluticasone propionate [24 Hour Allergy Relief] 50 mcg/actuation spray,suspension 1 spray intranasal DAILY PRN Rx Instructions: administer into each nostril Follow Up/Referrals: Chantell Gonzalez MD [Primary Care Provider, Family Practice] Stand Alone Forms: [employer] Info Instructions
--- NOTE | 2025-04-22 | CRLHL7_ITS ---
For Patients: As a result of the Century Cures Act, medical imaging exams and procedure reports are released immediately into your electronic medical record. You may view this report before your referring provider. If you have questions, please contact your health care provider. Indication: Constipation. Technique: Abdomen 4 view. Comparison: None. Findings/Impression: Bowel: Bowel pattern is normal. Mild colonic stool burden. Soft tissues: No sign of free air. No sign of soft tissue mass. No suspicious calcifications. Bones: Unremarkable for age. Dictated by Mani Boyer MD @ 04/22/2025 1:06:06 AM (Electronically Signed)
[2025-04-22 00:23] VITALS: O2SAT 95
[2025-04-22 00:40] LABS: Hematocrit* 39.7 % (37.0-53.0); Hemoglobin* 13.4 gm/dL (13.5-17.5); Immature Granulocytes Abs Auto 0.01 K/uL (0.00-0.30); Immature Granulocytes Pct Auto 0.1 %; Mean Corpuscular HGB Conc 34 gm/dL (32-36); Mean Corpuscular Hemoglobin 30 pg (26-34); Mean Corpuscular Volume 89 fL (80-100); RDW Coefficient of Variation % 12.0 % (11.5-15.5); Red Blood Count* 4.47 m/uL (4.30-5.90); White Blood Count* 9.46 K/uL (4.50-11.00)
--- NOTE | 2025-04-22 00:43 | CRLHL7_ITS ---
For Patients: As a result of the Century Cures Act, medical imaging exams and procedure reports are released immediately into your electronic medical record. You may view this report before your referring provider. If you have questions, please contact your health care provider. INDICATION: Abnormal x-ray. Nausea, no stool TECHNIQUE: CT abdomen and pelvis acquired with 106 cc of Isovue 370 IV contrast. COMPARISON: None. FINDINGS: Lower chest: Unremarkable. Liver: Unremarkable. Normal in size and attenuation. No suspicious masses. Gallbladder and bile ducts: Unremarkable. No stones or inflammation. No biliary dilatation. Pancreas: Unremarkable. No mass or inflammation. Spleen: Unremarkable. Normal in size. No masses. Adrenal glands: Unremarkable. No nodules. Kidneys: Absent left kidney. Unremarkable right kidney. No suspicious masses, stones, or hydronephrosis. GI tract: Small air-fluid levels throughout the colon. No mural thickening. No bowel obstruction. Normal appendix. Vasculature: Abdominal aorta is normal in caliber. Mesenteric arteries are patent. Lymph nodes: No lymphadenopathy. Peritoneum/Abdominal Wall: Unremarkable. No free air or significant free fluid. Pelvis: Unremarkable. Bones: Unremarkable for age. IMPRESSION: 1. Small air-fluid levels throughout the colon, which can be seen with a diarrheal illness. 2. Absent left kidney. 3. Otherwise, unremarkable CT of the abdomen and pelvis. Please note that all CT scans at this facility use dose modulation, iterative reconstruction, and/or weight-based dosing when appropriate to reduce radiation dose to as low as reasonably achievable. Dictated by Chino Melendez MD @ 04/22/2025 2:11:08 AM (Electronically Signed)
[2025-04-22 00:44] LABS: Lactate* 1.5 mmol/L (0.5-1.9)
[2025-04-22 00:48] LABS: Lymphocytes Absolute Auto 1.50 K/uL (0.90-2.90); Slide Review Reflex No
[2025-04-22 01:07] LABS: Albumin* 3.9 g/dL (3.3-5.0); Chloride* 98 mmol/L (96-114)
[2025-04-22 01:08] LABS: Potassium* 4.4 mmol/L (3.6-5.1); Sodium* 133 mmol/L (135-149)
[2025-04-22 01:10] LABS: Alanine Aminotransferase* 40 U/L (4-50); Aspartate Amino Transferase* 32 U/L (12-35); Blood Urea Nitrogen* 17 mg/dL (7-30); Creatinine* 1.1 mg/dL (0.5-1.5); Est. Creatinine Clearance* 85.75; Estimated Glomerular Filt Rate 79 ml/min
[2025-04-22 01:11] LABS: Alkaline Phosphatase* 133 U/L (40-150); Anion Gap 10 mEq/L (7-15); Bilirubin Total* 1.1 mg/dL (0.1-1.5); Calcium* 9.3 mg/dL (8.4-10.6); Carbon Dioxide* 25 mmol/L (20-32); Glucose* 129 mg/dL (60-115); Total Protein* 7.4 g/dL (6.0-8.3)
--- OUTSIDE RECORDS SUMMARY | 2025-04-22 01:31 | XMS_ITS | Clinical Summary ---
Author Organization [facility] Address [address] [place] [address] Care Team Providers Care Career Portals Teacher Name Role Phone Chantell Gonzalez Primary Care Provider [phone] Allergies No known active allergies Medications predniSONE [...] per actuation) nasal solution (FLONASE) Inhale 1 Strang into affected nostril(s) once daily. 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 Gender Identity Not on file Sexual Orientation [...] - 199 mg/dL 01/16/2023 2:25 PM CDT [facility] Comment: Cholesterol, Total Reference Ranges Desirable <200 mg/dL Borderline 200-239 mg/dL High >=240 mg/dL TRIGLYCERIDES 165(H) <150 mg/dL 01/16/2023 2:25 PM CDT [facility] HDL CHOLESTEROL 31(L) >40 mg/dL 2:25 PM CDT [facility] NON-HDL CHOLESTEROL 150(H) <145 mg/dl 01/16/2023 2:25 PM CDT [facility] CHOL/HDL RATIO 5.84(H) <4.50 01/16/2023 2:25 PM CDT [facility] LDL CHOLESTEROL 117 <=130 mg/dL 01/16/2023 2:25 PM CDT [facility] VLDL CHOLESTEROL 33(H) <=30 mg/dL 01/16/2023 2:25 PM CDT [facility] PROVIDER ORDERED STATUS RANDOM 01/16/2023 2:25 PM CDT [facility] Blood BLOOD SPECIMEN / Unknown Venipuncture / Unknown 01/15/2023 4:37 PM CDT 01/15/2023 4:37 PM CDT us Adilia Delgado MD CHEMISTRY Final R esult [facility] [address] [place] [address], from Last 3 Months or Most Recently Relevant to Health Maintenance Insurance [facility] [place] Care Teams Career Portals Teacher Relationship Specialty Start Date End Date Chantell Gonzalez PCP - General 01/15/23
--- OUTSIDE RECORDS SUMMARY | 2025-04-22 01:36 | XMS_ITS | Encounter Summary ---
Author Organization [facility] Address [address] [place] [address] Care Team Providers Care Flute Teacher Name Role Phone [facility] Primary Care Provider Encounter Details Date Type [...] on filedocumented in this encounter Care Teams Flute Teacher Relationship Specialty Start Date End Date [address] [address] PCP - General 03/07/25 documented as of this encounter
--- OUTSIDE RECORDS SUMMARY | 2025-04-22 01:36 | XMS_ITS | Clinical Summary ---
Author Organization [place] Address [address] [place] [id number] Care Team Providers Care Quantitative Strategy Analyst Name Role Phone Clinic, [facility] Primary Care Provider Allergies No known active allergies Medications No known medications Encounters Date Type Department Care Team Description 04/10/2025 1:08 PM CDT - 04/10/2025 3:56 PM CDT Emergency [facility] Emergency Dept [address] [place] [address] Arturo Mcduffie MD Syncope, unspecified syncope type [...] pattern and caliber bilateral SAHARA, MCA and FIELD LIABILITY GENERALIST distribution. No pathologic enhancement intracranially. Dural venous sinus enhancement is normal. NECK CTA: 1. No hemodynamic stenosis or dissection of the major neck arteries or at the great vessel origin level. No pathologic enhancement in the neck. Narrative 04/10/2025 2:41 PM CDT EXAM: CTA HEAD NECK W CONTRAST LOCATION: [facility] DATE: 04/10/2025 INDICATION: Syncope, recent dizziness. COMPARISON: [...] aneurysm, or high flow vascular malformation. Standard [place] anatomy. Satisfactory peripheral branch arborization pattern and caliber bilateral SAHARA and MCA distribution. POSTERIOR CIRCULATION: No stenosis/occlusion, aneurysm, or high flow vascular malformation. Balanced vertebral arteries supply a normal basilar artery. Satisfactory peripheral branch arborization pattern and caliber bilateral FIELD LIABILITY GENERALIST distribution. DURAL VENOUS SINUSES: Expected enhancement of [...] EXAM: CTA HEAD NECK W CONTRAST LOCATION: [facility] DATE: 04/10/2025 INDICATION: Syncope, recent dizziness. COMPARISON: [...] stenosis/occlusion, aneurysm, or high flowvascular malformation. Standard [place] anatomy. Satisfactoryperipheral branch arborization pattern and caliber bilateral SAHARA and MCAdistribution. POSTERIOR CIRCULATION: No stenosis/occlusion, aneurysm, or high flowvascular malformation. Balanced vertebral arteries supply a normal basilarartery. Satisfactory peripheral branch arborization pattern and caliberbilateral FIELD LIABILITY GENERALIST distribution. DURAL VENOUS SINUSES: Expected enhancement of [...] arborization pattern and caliber bilateralACA, MCA and FIELD LIABILITY GENERALIST distribution. No pathologic enhancement intracranially.Dural venous sinus [...] CT CHEST PULMONARY EMBOLISM W CONTRAST LOCATION: [facility] DATE: 04/10/2025 INDICATION: SOB, elevated D-dimer. COMPARISON: [...] CT CHEST PULMONARY EMBOLISM W CONTRAST LOCATION: [facility] DATE: 04/10/2025 INDICATION: SOB, elevated D-dimer. COMPARISON: [...] CDT EXAM: CT HEAD W/O CONTRAST LOCATION: [facility] DATE: 04/10/2025 INDICATION: Syncope, recent dizziness. COMPARISON: [...] 04/10/2025 EXAM: CT HEAD W/O CONTRAST LOCATION: [facility] DATE: 04/10/2025 INDICATION: Syncope, recent dizziness. COMPARISON: [...] Tube (04/10/2025 1:18 PM CDT) Hold Specimen [facility] 04/10/2025 2:32 PM CDT LABORATORY Blood STRUCTURE OF LEFT UPPER LIMB / Unknown Venipuncture / Unknown 04/10/2025 1:18 PM CDT 04/10/2025 1:24 PM CDT Arturo Mcduffie MD LAB - BLOOD ORDERABLES Final Result Performing Organization Address City/[facility]/ZIP Co de Phone Number [facility] Lab [address] Lab (1st floor, no room number) [place] [phone] * Extra Green Top ([place] Heparin) Tube (04/10/2025 1:18 PM CDT) Hold Specimen [facility] 04/10/2025 2:32 PM CDT LABORATORY Blood STRUCTURE OF LEFT UPPER LIMB / Unknown Venipuncture / Unknown 04/10/2025 1:18 PM CDT 04/10/2025 1:24 PM CDT Arturo Mcduffie MD LAB - BLOOD ORDERABLES Final Result [facility] Lab [address] Lab (1st floor, no room number) [place] [address] * Extra Red Top Tube (04/10/2025 1:18 PM CDT) Hold Specimen [facility] 04/10/2025 2:32 PM CDT RH LABORATORY Blood STRUCTURE OF LEFT UPPER LIMB / Unknown Venipuncture / Unknown 04/10/2025 1:18 PM CDT 04/10/2025 1:24 PM CDT Arturo Mcduffie MD LAB - BLOOD ORDERABLES Final Result LABORATORY [facility] Lab [address] Lab (1st floor, no room number) [place] [phone] * Extra Blue Top Tube (04/10/2025 1:18 PM CDT) Hold Specimen C 04/10/2025 2:32 PM CDT RH LABORATORY Blood STRUCTURE OF LEFT UPPER LIMB / Unknown Venipuncture / Unknown 04/10/2025 1:18 PM CDT 04/10/2025 1:24 PM CDT Arturo Mcduffie MD LAB - BLOOD ORDERABLES Final Result LABORATORY [facility] Care Lab [address] Lab (1st floor, no room number) [address] * CBC with platelets and differential [...] - BLOOD ORDERABLES Final Result RH LABORATORY [facility] Lab [address] Lab (1st floor, no room number) [place] [address], [facility] * (ABNORMAL) Basic Metabolic Panel (Limited [...] LAB - BLOOD ORDERABLES Final Result LABORATORY [facility] Lab [address] Lab (1st floor, no room number) [place] [address] * Magnesium (Limited Occurrences) (04/10/2025 1:18 PM CDT) Magnesium 1.9 1.7 - 2.3 mg/dL 04/10/2025 2:03 PM CDT LABORATORY Blood STRUCTURE OF LEFT UPPER LIMB / Unknown Venipuncture / Unknown 04/10/2025 1:18 PM CDT 04/10/2025 1:24 PM CDT Arturo Mcduffie MD LAB - BLOOD ORDERABLES Final Result [facility] Care Lab [address] [employer] Lab (1st floor, no room number) [place] [address] * Troponin T, High Sensitivity (04/10/2025 1:18 [...] MD LAB - BLOOD ORDERABLES Final Result [facility] Lab [address] Lab (1st floor, no room number) [place] [address] * (ABNORMAL) D dimer quantitative (04/10/2025 1:18 [...] out pulmonary embolism: The ADJUST-PE Study. LALO 2014;311:[id number].; HJ Tylor et al. Diagnostic accuracy of conventional or age adjusted D-dimer cutoff values in older patients with suspected venous thromboembolism. Systemic review and meta-analysis. BMJ 2013:346:f2492. us Arturo Mcduffie MD LAB - BLOOD ORDERABLES Final Result RH LABORATORY [facility] Lab [address] Lab (1st floor, no room number) [place] [address], [facility] * EKG 12 lead (04/10/2025 1:15 PM CDT) Systolic Blood Pressure mmHg RADIOLOGY RESULTS Diastolic Blood Pressure mmHg RADIOLOGY RESULTS Ventricular Rate 84 BPM RAD IOLOGY RESULTS Atrial Rate 84 BPM RADIOLOG Y RESULTS WI Interval 150 ms RADIOLOG Y RESULTS QRS Duration 88 ms RADIOLO GY RESULTS QT 366 ms RADIOLOGY RESULTS QTc 432 ms RADIOLOGY RESULTS P [place] 61 degrees RADIOLOGY RESULTS R AXIS 91 degrees RADIOLOGY RESULTS T [place] 58 degrees RADIOLOGY RESULTS Interpretation ECG Sinus rhythm Rightward axis Borderline ECG No previous ECGs available Unconfirmed report - interpretation of this ECG is computer generated - see medical record for final interpretation Confirmed by - EMERGENCY ROOM, PHYSICIAN ([id number]), editorial project manager Hai Mendez ([id number]) on 04/10/2025 2:38:07 PM RADIOLOGY RESULTS 04/10/2025 1:15 PM CDT 04/10/2025 2:38 PM CDT Arturo Mcduffie MD ECG ORDERABLES Edited Result - Final RADIOLOGY RESULTS * Potassium (External Result) (03/14/2025 2:08 PM CDT) Pathologist [facility] Potassium (External) 4.5 3.6 - 5.1 mmol/L [facility] Blood 03/14/2025 2:08 PM CDT Narrative [facility] - 03/14/2025 2:08 PM CDT [facility] - External Lab Results us Provider Outside LAB - HIM EXTERNAL RESULT Final Result [facility] [address] [place] [address], [facility] [phone] * (ABNORMAL) Lipid Panel (External Result) (03/14/2025 2:08 PM CDT) Cholesterol (External) 200(A) 90 - 119 mg/dL [facility] Triglycerides (External) 172(A) 40 - 149 mg/dL [facility] HDL Cholesterol (External) 37(A) >=40 mg/dL [facility] LDL Cholesterol Calculated (External) 129 <100 mg/dL [facility] Blood 03/14/2025 2:08 PM CDT [facility] - 03/14/2025 2:08 PM CDT [facility] - External Lab Results us Provider Outside LAB - HIM EXTERNAL RESULT Final Result Performing Organization Address City/[facility]/ZIP Co de Phone Number [facility] [address] [place] [address], [facility] [phone] * Hemoglobin A1c (External Result) (03/14/2025 2:08 PM CDT) Hemoglobin A1C (External) 5.5 0 - 5.6 % [facility] Blood 03/14/2025 2:08 PM CDT [facility] - 03/14/2025 2:08 PM CDT [facility] - External Lab Results us Provider Outside LAB - HIM EXTERNAL RESULT Final Result Performing Organization Address City/[facility]/ZIP Co de Phone Number [facility] [address] [place] [address], [facility] [phone] * Glucose (External Result) (03/14/2025 2:08 PM CDT) Glucose (External) 102 60 - 115 mg/dL [facility] Blood 03/14/2025 2:08 PM CDT [facility] - 03/14/2025 2:08 PM CDT [facility] - External Lab Results us Provider Outside LAB - HIM EXTERNAL RESULT Final Result Performing Organization Address City/[facility]/ZIP Co de Phone Number [facility] [address] [place] [address], [facility] [phone] * Creatinine (External Result) (03/14/2025 2:08 PM CDT) Creatinine (External) 1.2 0.5 - 1.5 mg/dL [facility] Blood 03/14/2025 2:08 PM CDT [facility] - 03/14/2025 2:08 PM CDT [facility] - External Lab Results us Provider Outside LAB - HIM EXTERNAL RESULT Final Result Performing Organization Address [facility] Co de Phone Number [address] [address] [phone] * AST (External Result) (03/14/2025 2:08 PM CDT) AST (External) 33 12 - 35 U/L [facility] Blood 03/14/2025 2:08 PM CDT [facility] - 03/14/2025 2:08 PM CDT [facility] - External Lab Results us Provider Outside LAB - HIM EXTERNAL RESULT Final Result Performing Organization Address [facility] de Phone Number [address] [address] [phone] * ALT (External Result) (03/14/2025 2:08 PM CDT) ALT (External) 30 4 - 50 U/L [facility] Blood 03/14/2025 2:08 PM CDT [facility] - 03/14/2025 2:08 PM CDT [facility] - External Lab Results us Provider Outside LAB - HIM EXTERNAL RESULT Final Result Performing Organization Address [facility] Co de Phone Number [address] [address] [phone] * Lab Result - HIM Scan (03/14/2025 12:00 AM CDT) 03/14/2025 us Provider Outside MH NON-BEAKER LAB TESTING Final Result * EKG Cardiac - HIM Scan (03/14/2025 12:00 AM CDT) 03/14/2025 us Provider Outside ECG ORDERABLES Final Result from Last 3 Months Insurance BCBS OUT OF STATE BCBS OUT OF STATE Care Teams Quantitative Strategy Analyst Relationship Specialty Start Date End Date Clinic, [facility] [address] [place] [id number] PCP - General 03/07/25
[2025-04-22] MEDS: lidocaine HCL 2 % JELLY (TOP) STERILE 6 ML UR (01:50)
[2025-04-22 01:55] LABS: Appearance Urine Clear (Clear)
[2025-04-22 03:32] VITALS: BP 140/60; PULSE 80; RESP 20; O2SAT 97
== END 2025-04-22 03:34 | disposition home or self-care (01) ==
PROVIDERS: Emergency Provider Family Medicine; PCP Family Medicine
DX: R33.9 Retention of urine, unspecified (principal); R11.0 Nausea; R14.0 Abdominal distension (gaseous)
CPT/HCPCS: 51702; 36415; 74019; 74177; 80053; 81001; 83605; 85025; 86140; 94761; 96361; 96374; 99284; 99285; J3010; J7030; Q9967

== ENCOUNTER 2025-04-25 09:47 | Outpatient (CLI) | payer BC, SELFPAY | END 2025-04-25 09:48 | disposition home or self-care (01) | LOC: FRMREF 09:48 | PROVIDERS: PCP Family Medicine; Visit Provider Family Medicine | DX: R79.82 Elevated C-reactive protein (CRP) (principal) | CPT/HCPCS: 80053; 86140 ==